=== PATIENT | female | born 1965 | race African-American/Black ===

== ENCOUNTER 2016-08-21 10:56 | Day surgery (SDC) | payer MEDICAID ==
[2016-08-21] MEDS ORDERED: LACTATED RINGERS 1,000 ML IV ONE (11:06)
[2016-08-21] MEDS ORDERED: fentaNYL 250 MCG/5 ML VIAL IVP ONE (12:56)
[2016-08-21] MEDS ORDERED: MIDAZOLAM 2 MG/2 ML VIAL IVP ONE (12:56)
== END 2016-08-21 10:57 | disposition home or self-care (01) ==
PROC: 0DBL8ZX Excision of Transverse Colon, Via Natural or Artificial Opening Endoscopic, Diagnostic (ICD-10-PCS; principal; 2016-08-21 11:45)
DX: Z12.11 Encounter for screening for malignant neoplasm of colon (principal); D12.3 Benign neoplasm of transverse colon; Z79.82 Long term (current) use of aspirin; I42.9 Cardiomyopathy, unspecified; Z88.5 Allergy status to narcotic agent; Z80.9 Family history of malignant neoplasm, unspecified; Z82.0 Family history of epilepsy and other diseases of the nervous system; Z87.891 Personal history of nicotine dependence
CPT/HCPCS: 45380; J3010; J7120

== ENCOUNTER 2016-10-09 09:57 | Outpatient (CLI) | payer MEDICAID | END 2016-10-09 09:58 | disposition home or self-care (01) | DX: G43.719 Chronic migraine without aura, intractable, without status migrainosus (principal); T88.7XXA Unspecified adverse effect of drug or medicament, initial encounter ==

== ENCOUNTER 2017-07-01 10:09 | Outpatient (CLI) | payer MEDICAID ==
[2017-07-01 13:21] LABS: BASOPHILS % (AUTO) 0.3 %; HGB - HEMOGLOBIN 12.8 g/dL (12.0-16.0); LYMPHOCYTES # (AUTO) 1.9 10^3/uL (1.5-3.5); LYMPHOCYTES % (AUTO) 40.1 %; MEAN CORPUSCULAR HEMOGLOBIN 31.4 pg (27.0-31.0); MEAN CORPUSCULAR HGB CONC 34.8 g/dL (32.0-36.0); MEAN CORPUSCULAR VOLUME 90.4 fL (81.0-99.0); MEAN PLATELET VOLUME 10.2 fL (7.9-10.8); MONOCYTES # (AUTO) 0.6 10^3/uL (0.0-1.0); MONOCYTES % (AUTO) 13.2 %; NEUTROPHILS # (AUTO) 2.2 10^3/uL (1.5-6.6); NEUTROPHILS % (AUTO) 45.4 %; PLT - PLATELET COUNT 165 10^3/uL (130-450); RED BLOOD COUNT 4.09 10^6/uL (4.20-5.40); RED CELL DISTRIBUTION WIDTH 12.6 % (12.0-15.0); WHITE BLOOD COUNT 4.8 x10^3/uL (4.8-10.8)
[2017-07-01 14:17] LABS: ALBUMIN 4.3 g/dL (3.2-5.5); ALBUMIN/GLOBULIN RATIO 1.5 (1.0-2.2); ALKALINE PHOSPHATASE 64 IU/L (42-121); ALT ALANINE AMINOTRANSFERASE 10 IU/L (10-60); AST ASPARTATE AMINOTRANSFERASE 16 IU/L (10-42); BILIRUBIN,TOTAL 0.9 mg/dL (0.2-1.0); BUN - BLOOD UREA NITROGEN 12 mg/dL (6-20); CALCIUM 9.1 mg/dL (8.5-10.3); CARBON DIOXIDE - CO2 30 mmol/L (21-32); CHLORIDE 100 mmol/L (101-111); CHOLESTEROL 102 mg/dL; CREATININE 0.6 mg/dL (0.4-1.0); GFR - MDRD 126 (>89); GLUCOSE 82 mg/dL (70-100); HDL CHOLESTEROL 50 mg/dL; LDL CHOLESTEROL,CALCULATED 42 mg/dL; LDL/HDL RATIO 0.8 (<4.4); SODIUM 139 mmol/L (135-145); TOTAL PROTEIN 7.1 g/dL (6.7-8.2); VLDL CHOLESTEROL 10 mg/dL
[2017-07-01 16:37] LABS: HB2 TOTAL 13.2 g/dL; HEMOGLOBIN A1C 0.51 g/dL; HEMOGLOBIN A1C % 5.7 % (4.6-6.2)
== END 2017-07-01 10:10 ==
LOC: LAB.N 10:09
PROVIDERS: ATTEND Psychiatry & Neurology Neurology
DX: Z00.00 Encounter for general adult medical examination without abnormal findings (principal); Z79.899 Other long term (current) drug therapy; E78.5 Hyperlipidemia, unspecified
CPT/HCPCS: 36415; 80053; 80061; 83036; 85025

== ENCOUNTER 2017-07-20 10:08 | Outpatient (CLI) | payer MEDICAID ==
[2017-07-20 12:56] LABS: BASOPHILS % (AUTO) 0.5 %; EOSINOPHILS # (AUTO) 0.1 10^3/uL (0.0-0.7); EOSINOPHILS % (AUTO) 1.1 %; HGB - HEMOGLOBIN 13.3 g/dL (12.0-16.0); LYMPHOCYTES # (AUTO) 2.2 10^3/uL (1.5-3.5); LYMPHOCYTES % (AUTO) 35.3 %; MEAN CORPUSCULAR HEMOGLOBIN 31.3 pg (27.0-31.0); MEAN CORPUSCULAR HGB CONC 34.5 g/dL (32.0-36.0); MEAN CORPUSCULAR VOLUME 90.6 fL (81.0-99.0); MEAN PLATELET VOLUME 10.6 fL (7.9-10.8); MEAN RETIC VALUE 113.2; MONOCYTES # (AUTO) 0.8 10^3/uL (0.0-1.0); MONOCYTES % (AUTO) 12.9 %; NEUTROPHILS # (AUTO) 3.2 10^3/uL (1.5-6.6); NEUTROPHILS % (AUTO) 50.2 %; PLT - PLATELET COUNT 154 10^3/uL (130-450); RED BLOOD COUNT 4.26 10^6/uL (4.20-5.40); RED CELL DISTRIBUTION WIDTH 13.4 % (12.0-15.0); WHITE BLOOD COUNT 6.4 x10^3/uL (4.8-10.8)
[2017-07-20 13:20] LABS: FERRITIN 22.4 ng/mL (11.0-306.8)
[2017-07-20 13:23] LABS: FOLATE 10.44 ng/mL (5.90 - >24.8)
[2017-07-20 14:09] LABS: % IRON SATURATION 16 % (20-50); IRON 59 ug/dL (28-170); TOTAL IRON BINDING CAPACITY 358 ug/dL (250-450); TRANSFERRIN 256 mg/dL (192-382)
== END 2017-07-20 10:09 | disposition home or self-care (01) ==
LOC: LAB.N 10:08
PROVIDERS: ATTEND Family Medicine
DX: E55.9 Vitamin D deficiency, unspecified (principal); D64.9 Anemia, unspecified
CPT/HCPCS: 36415; 82306; 82607; 82728; 82746; 83540; 84466; 85025; 85044

== ENCOUNTER 2017-08-12 08:22 | Outpatient (CLI) | payer MEDICAID ==
--- NOTE | 2017-08-12 12:46 | XRAY Report ---
THREE VIEW BILATERAL KNEES: 08/12/2017 CLINICAL INDICATION: Pain. FINDINGS: AP, lateral, sunrise views of the bilateral knees demonstrate no evidence of fracture or dislocation. The joint spaces are preserved. No effusion is present on either side. IMPRESSION: NORMAL BILATERAL KNEES. TD: 08/12/2017 12:45
== END 2017-08-12 08:23 | disposition home or self-care (01) ==
LOC: DI.N 08:22
PROVIDERS: ATTEND Family Medicine
DX: M25.561 Pain in right knee (principal); M25.562 Pain in left knee

== ENCOUNTER 2017-11-20 09:58 | Outpatient (CLI) | payer MEDICAID ==
[2017-11-20 10:26] LABS: BASOPHILS % (AUTO) 0.6 %; EOSINOPHILS # (AUTO) 0.1 10^3/uL (0.0-0.7); EOSINOPHILS % (AUTO) 1.6 %; HGB - HEMOGLOBIN 13.5 g/dL (12.0-16.0); LYMPHOCYTES % (AUTO) 36.5 %; MEAN CORPUSCULAR HEMOGLOBIN 30.6 pg (27.0-31.0); MEAN CORPUSCULAR HGB CONC 33.6 g/dL (32.0-36.0); MEAN PLATELET VOLUME 9.2 fL (7.9-10.8); MONOCYTES # (AUTO) 0.6 10^3/uL (0.0-1.0); NEUTROPHILS # (AUTO) 2.7 10^3/uL (1.5-6.6); NEUTROPHILS % (AUTO) 50.3 %; PLT - PLATELET COUNT 184 10^3/uL (130-450); RED BLOOD COUNT 4.41 10^6/uL (4.20-5.40); RED CELL DISTRIBUTION WIDTH 12.9 % (12.0-15.0); WHITE BLOOD COUNT 5.4 x10^3/uL (4.8-10.8)
[2017-11-20 10:38] LABS: ALBUMIN 4.1 g/dL (3.2-5.5); ALBUMIN/GLOBULIN RATIO 1.3 (1.0-2.2); ALKALINE PHOSPHATASE 60 IU/L (42-121); ALT ALANINE AMINOTRANSFERASE < 10 IU/L (10-60); AST ASPARTATE AMINOTRANSFERASE 14 IU/L (10-42); BILIRUBIN,TOTAL 0.8 mg/dL (0.2-1.0); BUN - BLOOD UREA NITROGEN 11 mg/dL (6-20); CARBON DIOXIDE - CO2 31 mmol/L (21-32); CHLORIDE 100 mmol/L (101-111); CREATININE 0.5 mg/dL (0.4-1.0); GFR - MDRD 156 (>89); GLUCOSE 97 mg/dL (70-100); SODIUM 138 mmol/L (135-145); TOTAL PROTEIN 7.2 g/dL (6.7-8.2)
[2017-11-20 10:55] LABS: RBC MORPHOLOGY (MULTIPLE) 1+ ANISOCYTOSIS (NORMAL)
== END 2017-11-20 09:59 | disposition home or self-care (01) ==
LOC: LAB 09:58
PROVIDERS: ATTEND Psychiatry & Neurology Neurology
DX: R79.89 Other specified abnormal findings of blood chemistry (principal); T88.7XXA Unspecified adverse effect of drug or medicament, initial encounter
CPT/HCPCS: 36415; 80053; 82140; 85025

== ENCOUNTER 2018-02-22 12:54 | Outpatient (CLI) | payer MEDICAID | END 2018-02-22 12:55 | disposition home or self-care (01) | LOC: DI.N 12:54 | PROVIDERS: ATTEND Family Medicine | DX: Z53.9 Procedure and treatment not carried out, unspecified reason (principal) ==

== ENCOUNTER 2018-03-22 08:10 | Outpatient (CLI) | payer MEDICAID ==
[2018-03-22 14:32] LABS: BASOPHILS % (AUTO) 0.5 %; EOSINOPHILS # (AUTO) 0.1 10^3/uL (0.0-0.7); EOSINOPHILS % (AUTO) 1.6 %; HGB - HEMOGLOBIN 12.4 g/dL (12.0-16.0); LYMPHOCYTES # (AUTO) 1.7 10^3/uL (1.5-3.5); LYMPHOCYTES % (AUTO) 32.6 %; MEAN CORPUSCULAR HEMOGLOBIN 31.3 pg (27.0-31.0); MEAN PLATELET VOLUME 10.7 fL (7.9-10.8); MONOCYTES # (AUTO) 0.6 10^3/uL (0.0-1.0); MONOCYTES % (AUTO) 10.9 %; NEUTROPHILS # (AUTO) 2.8 10^3/uL (1.5-6.6); NEUTROPHILS % (AUTO) 54.4 %; PLT - PLATELET COUNT 178 10^3/uL (130-450); RED BLOOD COUNT 3.97 10^6/uL (4.20-5.40); RED CELL DISTRIBUTION WIDTH 13.4 % (12.0-15.0); WHITE BLOOD COUNT 5.2 x10^3/uL (4.8-10.8)
[2018-03-22 14:54] LABS: ALBUMIN 3.9 g/dL (3.2-5.5); ALBUMIN/GLOBULIN RATIO 1.4 (1.0-2.2); ALKALINE PHOSPHATASE 55 IU/L (42-121); ALT ALANINE AMINOTRANSFERASE 10 IU/L (10-60); AST ASPARTATE AMINOTRANSFERASE 15 IU/L (10-42); BILIRUBIN,TOTAL 0.3 mg/dL (0.2-1.0); BUN - BLOOD UREA NITROGEN 9 mg/dL (6-20); CALCIUM 8.8 mg/dL (8.5-10.3); CARBON DIOXIDE - CO2 31 mmol/L (21-32); CHLORIDE 100 mmol/L (101-111); CHOLESTEROL 178 mg/dL; CREATININE 0.3 mg/dL (0.4-1.0); GFR - MDRD 281 (>89); GLUCOSE 85 mg/dL (70-100); HDL CHOLESTEROL 44 mg/dL; LDL CHOLESTEROL,CALCULATED 117 mg/dL; LDL/HDL RATIO 2.7 (<4.4); SODIUM 140 mmol/L (135-145); TOTAL PROTEIN 6.7 g/dL (6.7-8.2); VLDL CHOLESTEROL 17 mg/dL
[2018-03-22 15:03] LABS: PLATELET MORPHOLOGY RARE GIANT PLATELETS (NORMAL)
== END 2018-03-22 08:11 | disposition home or self-care (01) ==
LOC: LAB.N 08:10
PROVIDERS: ATTEND Family Medicine
DX: Z00.00 Encounter for general adult medical examination without abnormal findings (principal); E55.9 Vitamin D deficiency, unspecified; R63.4 Abnormal weight loss
CPT/HCPCS: 36415; 80050; 80061; 83721

== ENCOUNTER 2018-03-24 13:12 | Outpatient (CLI) | payer MEDICAID ==
[2018-03-24 13:36] LABS: BASOPHILS # (AUTO) 0.1 10^3/uL (0.0-0.1); BASOPHILS % (AUTO) 1.9 %; EOSINOPHILS # (AUTO) 0.1 10^3/uL (0.0-0.7); EOSINOPHILS % (AUTO) 1.3 %; HGB - HEMOGLOBIN 13.1 g/dL (12.0-16.0); LYMPHOCYTES # (AUTO) 2.1 10^3/uL (1.5-3.5); LYMPHOCYTES % (AUTO) 34.5 %; MEAN CORPUSCULAR HEMOGLOBIN 31.1 pg (27.0-31.0); MEAN CORPUSCULAR HGB CONC 34.2 g/dL (32.0-36.0); MEAN CORPUSCULAR VOLUME 91.1 fL (81.0-99.0); MEAN PLATELET VOLUME 9.5 fL (7.9-10.8); MONOCYTES # (AUTO) 0.7 10^3/uL (0.0-1.0); NEUTROPHILS # (AUTO) 3.1 10^3/uL (1.5-6.6); NEUTROPHILS % (AUTO) 50.3 %; PLT - PLATELET COUNT 201 10^3/uL (130-450); RED BLOOD COUNT 4.22 10^6/uL (4.20-5.40); RED CELL DISTRIBUTION WIDTH 13.5 % (12.0-15.0); WHITE BLOOD COUNT 6.1 x10^3/uL (4.8-10.8)
[2018-03-24 13:53] LABS: % IRON SATURATION 12 % (20-50); ALBUMIN 4.2 g/dL (3.2-5.5); ALBUMIN/GLOBULIN RATIO 1.3 (1.0-2.2); ALKALINE PHOSPHATASE 73 IU/L (42-121); ALT ALANINE AMINOTRANSFERASE 10 IU/L (10-60); AST ASPARTATE AMINOTRANSFERASE 18 IU/L (10-42); BILIRUBIN,TOTAL 0.5 mg/dL (0.2-1.0); BUN - BLOOD UREA NITROGEN 7 mg/dL (6-20); CALCIUM 9.1 mg/dL (8.5-10.3); CARBON DIOXIDE - CO2 30 mmol/L (21-32); CHLORIDE 103 mmol/L (101-111); CHOLESTEROL 198 mg/dL; CREATININE 0.5 mg/dL (0.4-1.0); GFR - MDRD 156 (>89); GLUCOSE 89 mg/dL (70-100); HDL CHOLESTEROL 50 mg/dL; IRON 45 ug/dL (28-170); LDL CHOLESTEROL,CALCULATED 116 mg/dL; LDL/HDL RATIO 2.3 (<4.4); SODIUM 141 mmol/L (135-145); TOTAL IRON BINDING CAPACITY 374 ug/dL (250-450); TOTAL PROTEIN 7.5 g/dL (6.7-8.2); TRANSFERRIN 267 mg/dL (192-382); VLDL CHOLESTEROL 32 mg/dL
[2018-03-24 13:54] LABS: PLATELET ESTIMATE, MANUAL NORMAL (130-450,000) (NORMAL); PLATELET MORPHOLOGY RARE GIANT PLATELETS (NORMAL)
[2018-03-24 14:03] LABS: THYROID STIMULATING HORMONE 1.71 uIU/mL (0.34-5.60)
[2018-03-24 14:10] LABS: FERRITIN 15.8 ng/mL (11.0-306.8)
== END 2018-03-24 13:13 | disposition home or self-care (01) ==
LOC: LAB 13:12
PROVIDERS: ATTEND Family Medicine
DX: Z00.00 Encounter for general adult medical examination without abnormal findings (principal); E55.9 Vitamin D deficiency, unspecified; R63.4 Abnormal weight loss; D64.9 Anemia, unspecified
CPT/HCPCS: 36415; 80050; 80061; 82607; 82728; 82747; 83540; 83721; 84466

== ENCOUNTER 2018-04-21 12:07 | Outpatient (CLI) | payer MEDICAID ==
--- NOTE | 2018-04-22 10:34 | Mammography Report ---
Reason: ROUTINE MAMMO Procedure Date: 04/21/2018 Accession Number: [id number] / [id number] Procedure: NICKI - Screening Mammo Dig Bilat CPT Code: FULL RESULT: EXAM: Screening Mammo Dig Bilat DATE: 04/21/2018 1:49 PM CLINICAL HISTORY: Routine screening TECHNIQUE: Bilateral CC and MLO views were obtained. COMPARISON: 02/26/2016 and 07/03/2014 FINDINGS: The breast tissue is heterogeneously dense. No significant interval change. No suspicious masses, clustered microcalcifications, or regions of architectural distortion are identified. IMPRESSION: Negative examination RECOMMENDATION: Routine annual screening unless otherwise clinically indicated. BIRADS CATEGORY 1: Negative STANDARD QUALIFYING STATEMENTS: 1. This examination was reviewed with the aid of Computer-Aided Detection (CAD). 2. A negative or benign imaging report should not delay biopsy if clinically suspicious findings are present. Consider surgical consultation if warrented. More than 5% of cancers are not identified by imaging. 3. Dense breasts may obscure an underlying neoplasm.
== END 2018-04-21 12:08 | disposition home or self-care (01) ==
LOC: DI 12:07
PROVIDERS: ATTEND Family Medicine
DX: Z12.31 Encounter for screening mammogram for malignant neoplasm of breast (principal)
CPT/HCPCS: 77067

== ENCOUNTER 2018-05-25 08:00 | Outpatient (CLI) | payer MEDICAID ==
[2018-05-25 11:22] LABS: BASOPHILS # (AUTO) 0.1 10^3/uL (0.0-0.1); BASOPHILS % (AUTO) 1.2 %; EOSINOPHILS # (AUTO) 0.1 10^3/uL (0.0-0.7); EOSINOPHILS % (AUTO) 1.2 %; HGB - HEMOGLOBIN 13.5 g/dL (12.0-16.0); LYMPHOCYTES # (AUTO) 2.4 10^3/uL (1.5-3.5); LYMPHOCYTES % (AUTO) 37.7 %; MEAN CORPUSCULAR HEMOGLOBIN 30.6 pg (27.0-31.0); MEAN CORPUSCULAR HGB CONC 34.2 g/dL (32.0-36.0); MEAN CORPUSCULAR VOLUME 89.4 fL (81.0-99.0); MEAN PLATELET VOLUME 9.6 fL (7.9-10.8); MONOCYTES # (AUTO) 0.7 10^3/uL (0.0-1.0); MONOCYTES % (AUTO) 11.2 %; NEUTROPHILS # (AUTO) 3.2 10^3/uL (1.5-6.6); NEUTROPHILS % (AUTO) 48.7 %; PLT - PLATELET COUNT 205 10^3/uL (130-450); RED BLOOD COUNT 4.42 10^6/uL (4.20-5.40); RED CELL DISTRIBUTION WIDTH 12.9 % (12.0-15.0); WHITE BLOOD COUNT 6.5 x10^3/uL (4.8-10.8)
[2018-05-25 11:43] LABS: ALBUMIN 4.6 g/dL (3.2-5.5); ALBUMIN/GLOBULIN RATIO 1.5 (1.0-2.2); BILIRUBIN,TOTAL 0.4 mg/dL (0.2-1.0); CALCIUM 9.4 mg/dL (8.5-10.3); CREATININE 0.6 mg/dL (0.4-1.0); TOTAL PROTEIN 7.7 g/dL (6.7-8.2)
== END 2018-05-25 08:01 ==
LOC: LAB 08:00
PROVIDERS: ATTEND Psychiatry & Neurology Neurology
DX: Z51.81 Encounter for therapeutic drug level monitoring (principal)
CPT/HCPCS: 36415; 80053; 82140; 85025

== ENCOUNTER 2018-11-03 08:00 | Outpatient (CLI) | payer MEDICAID ==
[2018-11-03 13:00] LABS: BASOPHILS % (AUTO) 0.5 %; EOSINOPHILS # (AUTO) 0.1 10^3/uL (0.0-0.7); EOSINOPHILS % (AUTO) 1.8 %; HGB - HEMOGLOBIN 13.1 g/dL (12.0-16.0); LYMPHOCYTES # (AUTO) 1.5 10^3/uL (1.5-3.5); LYMPHOCYTES % (AUTO) 30.8 %; MEAN CORPUSCULAR HEMOGLOBIN 30.8 pg (27.0-31.0); MEAN CORPUSCULAR HGB CONC 33.5 g/dL (32.0-36.0); MEAN PLATELET VOLUME 11.2 fL (7.9-10.8); MONOCYTES # (AUTO) 0.6 10^3/uL (0.0-1.0); MONOCYTES % (AUTO) 11.5 %; NEUTROPHILS # (AUTO) 2.7 10^3/uL (1.5-6.6); NEUTROPHILS % (AUTO) 55.4 %; PLT - PLATELET COUNT 164 10^3/uL (130-450); RED BLOOD COUNT 4.24 10^6/uL (4.20-5.40); RED CELL DISTRIBUTION WIDTH 13.1 % (12.0-15.0); WHITE BLOOD COUNT 4.9 x10^3/uL (4.8-10.8)
[2018-11-03 13:20] LABS: ALBUMIN 3.8 g/dL (3.2-5.5); ALBUMIN/GLOBULIN RATIO 1.3 (1.0-2.2); ALKALINE PHOSPHATASE 61 IU/L (42-121); ALT ALANINE AMINOTRANSFERASE < 10 IU/L (10-60); AST ASPARTATE AMINOTRANSFERASE 15 IU/L (10-42); BILIRUBIN,TOTAL 0.7 mg/dL (0.2-1.0); BUN - BLOOD UREA NITROGEN 13 mg/dL (6-20); CALCIUM 8.8 mg/dL (8.5-10.3); CARBON DIOXIDE - CO2 30 mmol/L (21-32); CHLORIDE 98 mmol/L (101-111); CREATININE 0.4 mg/dL (0.4-1.0); GFR - MDRD 201 (>89); GLUCOSE 94 mg/dL (70-100); SODIUM 136 mmol/L (135-145); TOTAL PROTEIN 6.8 g/dL (6.7-8.2)
== END 2018-11-03 23:59 | disposition home or self-care (01) ==
LOC: LAB.N 08:00
PROVIDERS: ATTEND Psychiatry & Neurology Neurology
DX: Z51.81 Encounter for therapeutic drug level monitoring (principal)
CPT/HCPCS: 36415; 80053; 85025

== ENCOUNTER 2019-06-08 08:42 | Outpatient (CLI) | payer MEDICAID ==
--- NOTE | 2019-06-08 11:50 | Mammography Report ---
Reason: ROUTINE MAMMO Procedure Date: 06/08/2019 Accession Number: [id number] / [id number] Procedure: MGN - Screening Mammo Dig Bilat CPT Code: Final Report FULL RESULT: EXAM: Screening Mammo Dig Bilat DATE: 06/08/2019 9:11 AM CLINICAL HISTORY: Screening encounter. TECHNIQUE: (B) - Bilateral CC, laterally exaggerated CC, MLO views were obtained. COMPARISON: 04/21/2018 through 07/03/2014. PARENCHYMAL PATTERN: (A) - The breast(s) demonstrate(s) scattered fibroglandular densities. FINDINGS: CC views need to be repeated for technical reasons. There are no suspicious masses, calcifications, or areas of distortion. IMPRESSION: Incomplete examination. BI-RADS category 0. RECOMMENDATION: (REPEAT) - bilateral CC projections. BI-RADS CATEGORY: (0) - Incomplete Examination - need additional evaluation. STANDARD QUALIFYING STATEMENTS: 1. This examination was not reviewed with the aid of Computer-Aided Detection (CAD). 2. A negative or benign imaging report should not preclude biopsy if clinically suspicious findings are present. 3. Dense breasts may obscure an underlying neoplasm. 4. This examination was reviewed without the aid of 3D breast imaging (tomosynthesis).
== END 2019-06-08 08:43 | disposition home or self-care (01) ==
LOC: DI.N 08:42
PROVIDERS: ATTEND Physician Assistant Medical
DX: Z12.31 Encounter for screening mammogram for malignant neoplasm of breast (principal)
CPT/HCPCS: 77067

== ENCOUNTER 2019-06-28 08:14 | Outpatient (CLI) | payer MEDICAID ==
--- NOTE | 2019-06-28 09:28 | Mammography Report ---
Reason: TECH REPEAT - NO CHARGE - ROUTINE MAMMO Procedure Date: 06/28/2019 Accession Number: [id number] / [id number] Procedure: MGN - Screening Mammo Dig Bilat CPT Code: Final Report FULL RESULT: EXAM: Screening Mammo Dig Bilat DATE: 06/28/2019 8:29 AM CLINICAL HISTORY: EXAM: Screening Mammo Dig Bilat DATE: 06/28/2019 8:29 AM CLINICAL HISTORY: Screening encounter. TECHNIQUE: (B) - Bilateral CC, laterally exaggerated CC, MLO views were obtained. 06/28/2019 images are interpreted in conjunction with 06/08/2019 images. Posterior breast parenchyma visualization is limited despite technical repetition. Best possible images are obtained. COMPARISON: 04/21/2018 through 07/03/2014. PARENCHYMAL PATTERN: (A) - The breast(s) demonstrate(s) scattered fibroglandular densities. FINDINGS: There are no suspicious masses, calcifications, or areas of distortion. IMPRESSION: Negative examination. BI-RADS category 1. RECOMMENDATION: (ANNUAL) - Recommend routine annual screening mammography. BI-RADS CATEGORY: (1) - Negative. STANDARD QUALIFYING STATEMENTS: 1. This examination was not reviewed with the aid of Computer-Aided Detection (CAD). 2. A negative or benign imaging report should not preclude biopsy if clinically suspicious findings are present. 3. Dense breasts may obscure an underlying neoplasm. 4. This examination was reviewed without the aid of 3D breast imaging (tomosynthesis).
== END 2019-06-28 08:15 | disposition home or self-care (01) ==
LOC: DI.N 08:14
PROVIDERS: ATTEND Physician Assistant Medical
DX: Z12.31 Encounter for screening mammogram for malignant neoplasm of breast (principal)
CPT/HCPCS: 77067

== ENCOUNTER 2019-07-27 10:37 | Outpatient (CLI) | payer MEDICAID ==
--- NOTE | 2019-07-27 23:55 | XRAY Report ---
Reason: SHOULDER PAIN Procedure Date: 07/27/2019 Accession Number: [id number] / [id number] Procedure: XRN - Shoulder 2 View LT CPT Code: Final Report FULL RESULT: EXAM: LEFT SHOULDER RADIOGRAPHY EXAM DATE: 07/27/2019 11:17 AM. CLINICAL HISTORY: SHOULDER PAIN. COMPARISON: CHEST 2 VIEW PA/LAT 03/07/2016 8:36 AM. TECHNIQUE: 3 views. FINDINGS: Bones: Normal. No fracture or bone lesion. Joints: The glenohumeral and acromioclavicular joints are normal. Soft tissues: The visualized hemithorax is unremarkable. No soft tissue swelling. IMPRESSION: Normal shoulder radiography. RADIA
== END 2019-07-27 10:38 | disposition home or self-care (01) ==
LOC: DI.N 10:37
PROVIDERS: ATTEND Physician Assistant Medical
DX: M25.512 Pain in left shoulder (principal)

== ENCOUNTER 2019-09-06 13:20 | Outpatient (CLI) | payer MEDICAID | END 2019-09-06 13:21 | disposition critical access hospital (66) | LOC: EMS 13:20 | PROVIDERS: ATTEND Surgery | DX: R06.02 Shortness of breath (principal) | CPT/HCPCS: A0425; A0427; A0999 ==

== ENCOUNTER 2019-09-06 13:34 | Inpatient (IN) | payer MEDICAID ==
--- NOTE | 2019-09-06 13:39 | ED Physician Documentation ---
PD HPI DYSPNEA - Stated complaint Stated Complaint: CHF EXAC - History obtained from History obtained from: Patient - History of Present Illness Timing - onset: Today Timing - onset during: Light activity (The patient states she has enlarged heart and cardiomyopathy. She denies any heart attacks. Her management scientist is in [facility]. She was at cardiac rehab when she developed onset of dyspnea and trouble breathing. She denied any chest pain. She has been having some exertional dyspnea over the last several days as well as some feeling of tightness. She denies any cough or fevers. She has not noticed any pedal edema. She had the onset of significant dyspnea and had low oxygen level. She was brought to the ER by EMS on supplemental oxygen.) Timing - details: Abrupt onset, Still present Inciting event(s): Exercise (She is doing light activity in cardiac rehab.). No: Out of meds, URI Improved by: O2 Worsened by: Laying flat (for couple of days) Associated symptoms: Wheezing. No: Fever, Cough, Chest pain / discomfort, Bilateral edema Similar symptoms before: Has not had sx before (She denies prior similar episodes but states she does have cardiomyopathy and is on diuretic and blood pressure medicines.) Review of Systems Unable to obtain: Other (She has limited review of systems because of difficulty breathing. She is able to speak answers in short bullet points.) Constitutional: denies: Fever Throat: denies: Sore throat Cardiac: denies: Chest pain / pressure, Palpitations, Pedal edema Respiratory: reports: Dyspnea, Wheezing. denies: Cough GI: denies: Abdominal Pain, Nausea, Vomiting Neurologic: reports: Generalized weakness. denies: Near syncope PD PAST MEDICAL HISTORY - Past Medical History Cardiovascular: Other (Cardiomyopathy for which she does not know the etiology. 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 : None HEENT: Chronic vision loss Psych: None Musculoskeletal: None Derm: None - Past Surgical History Past Surgical History: Yes Cardiovascular: Cardiac catheterization HEENT: Tonsil/Adenoidectomy - Present Medications Home Medications: Ambulatory Orders Medication Instructions Recorded Confirmed Aspirin [Aspirin EC] 81 mg PO DAILY 09/06/19 09/06/19 Butalb/Acetaminophen/Caffeine 1 tab PO DAILY PRN MDD 1 tab per 09/06/19 09/06/19 [Szjuaa-Exzgvcxo-Meis 50-325-40] day Divalproex Dr [Depakote Dr] 250 mg PO BID 09/06/19 09/06/19 Montelukast Sodium 10 mg PO DAILY 09/06/19 09/06/19 carvediloL [Carvedilol] 6.25 mg PO BID 09/06/19 09/06/19 lisinopriL [Lisinopril] 10 mg PO DAILY 09/06/19 09/06/19 - Allergies Allergies/Adverse Reactions: Allergies Allergy/AdvReac Type Severity Reaction Status Date / Time oxycodone AdvReac Mild Nausea Verified 08/20/16 14:39 - Living Situation Living Situation: reports: With family Living Arrangement: reports: At home - Social History Does the pt smoke?: No Smoking Status: Never smoker Does the pt drink ETOH?: No Does the pt have substance abuse?: No - Family History Family history: reports: CAD - Immunizations Immunizations are current?: Yes - POLST Patient has POLST: No PD ED PE NORMAL - Vitals Vital signs reviewed: Yes - General General: Alert and oriented X 3, Other (She does appear in discomfort with increased work of breathing and diffuse fine crackles as well as expiratory wheezes. There is some accessory muscle use. She is able to answer questions and just 1 or 2 word answers. She is alert with eyes open.). No: Well developed/nourished (She is frail and thin.) - HEENT HEENT: Pharynx benign - Neck Neck: Supple, no meningeal sign, No adenopathy, Other (JVD noted in semi-recline position at 60 degrees.) - Cardiac Cardiac: No: RRR (Her heart rate seems regular and is tachycardic. I do not hear any murmurs. There are fine crackles noted diffusely through the lung [place] but particularly in the bases. There is a diffuse expiratory wheezing as well. She has some moderate accessory muscle use.) - Respiratory Respiratory: No: Clear bilaterally - Abdomen Abdomen: Soft, Non tender, Non distended - Female Female : Deferred - Rectal Rectal: Deferred - Back Back: No CVA TTP - Derm Derm: Normal color, Warm and dry - Extremities Extremities: No tenderness to palpate, Normal ROM s pain, No edema, No calf tenderness / cord - Neuro Neuro: Alert and oriented X 3, No motor deficit, Normal speech - Psych Psych: No: Normal affect (anxious) Results - Vitals Vitals: Vital Signs - 24 hr 09/06/19 09/06/19 09/06/19 13:41 13:45 13:52 Temperature 98.9 C H Heart Rate 144 H 153 H 147 H Respiratory 12 23 Rate Blood Pressure 155/124 H 155/124 H O2 Saturation 80 L 97 09/06/19 09/06/19 09/06/19 14:00 14:30 15:00 Temperature Heart Rate 139 H 130 H 106 H Respiratory 23 29 H 27 H Rate Blood Pressure 109/90 H 116/81 H 99/79 O2 Saturation 96 96 96 09/06/19 09/06/19 09/06/19 15:14 15:19 15:30 Temperature 36.0 C L Heart Rate 108 H 106 H 111 H Respiratory 27 H 24 27 H Rate Blood Pressure 98/76 107/90 H O2 Saturation 96 92 Oxygen O2 Source BIPAP - EKG (time done) 13:51 Rate: Rate (enter#) (135) Rhythm: Sinus tachycardia [place]: Normal Ischemia: Normal ST segments, Non specific changes. No: ST elevation c/w ischemia, ST depression - Labs Labs: Laboratory Tests 09/06/19 09/06/19 09/06/19 13:51 13:58 13:58 WBC 10.7 RBC 5.13 Hgb 15.7 Hct 50.6 H MCV 98.6 MCH 30.6 MCHC 31.0 L RDW 11.9 L Plt Count 169 MPV 13.5 H Neut # (Auto) Not Reportable Lymph # (Auto) Not Reportable Jones # (Auto) Not Reportable Eos # (Auto) Not Reportable Baso # (Auto) Not Reportable Absolute Nucleated RBC Not Reportable Total Counted 100 Band Neuts % (Manual) 0 Reactive Lymphs % (Man) 14 Abnorm Lymph % (Manual) 0 Nucleated RBC % Not Reportable Neutrophils # (Manual) 4.7 Lymphocytes # (Manual) 5.8 H Monocytes # (Manual) 0.1 Eosinophils # (Manual) 0.1 Basophils # (Manual) 0.0 Differential Comment MANUAL DIFFERENTIAL Manual Slide Review Indicated Platelet Estimate NORMAL (130-450,000) Platelet Morphology 1+ LARGE PLATELETS RBC Morph Micro Appear NORMAL APPEARANCE PT 12.0 INR 1.1 Sodium 138 Potassium 3.0 L Chloride 98 L Carbon Dioxide 20 L Anion Gap 20.0 H BUN 12 Creatinine 1.0 Estimated GFR (MDRD) 70 L Glucose 325 H Calcium 8.9 Magnesium 2.1 Total Bilirubin 0.6 AST 25 ALT 11 Alkaline Phosphatase 76 Troponin I High Sens B-Natriuretic Peptide Total Protein 7.4 Albumin 4.1 Globulin 3.3 Albumin/Globulin Ratio 1.2 Lipase 29 09/06/19 09/06/19 09/06/19 13:58 13:58 15:45 WBC RBC Hgb Hct MCV MCH MCHC RDW Plt Count MPV Neut # (Auto) Lymph # (Auto) Jones # (Auto) Eos # (Auto) Baso # (Auto) Absolute Nucleated RBC Total Counted Band Neuts % (Manual) Reactive Lymphs % (Man) Abnorm Lymph % (Manual) Nucleated RBC % Neutrophils # (Manual) Lymphocytes # (Manual) Monocytes # (Manual) Eosinophils # (Manual) Basophils # (Manual) Differential Comment Manual Slide Review Platelet Estimate Platelet Morphology RBC Morph Micro Appear PT INR Sodium Potassium Chloride Carbon Dioxide Anion Gap BUN Creatinine Estimated GFR (MDRD) Glucose Calcium Magnesium Total Bilirubin AST ALT Alkaline Phosphatase Troponin I High Sens 9.4 70.3 H* B-Natriuretic Peptide 985 H Total Protein Albumin Globulin Albumin/Globulin Ratio Lipase - Rads (name of study) chest xray Radiology: Prelim report reviewed, See rad report (Diffuse bilateral asymmetric infiltrates with areas of consolidation right greater than left. Infectious, inflammatory versus asymmetric edema. ) PD MEDICAL DECISION MAKING - ED course Complexity details: reviewed results, re-evaluated patient (She did improve fairly quickly with BiPAP as well as metoprolol to slow the heart rate and decrease her afterload. Her blood pressure did improve and her oxygenation increased. Chest x-ray showed diffuse edema more on the right. Again no fever and she has not had a cough so does not seem infectious at this time. Her findings are more consistent with flash pulmonary edema. She had been given Lasix by EMS. I worked mostly on decreasing pressure and improving oxygenation. She was awake and alert and conversant so did not seem to be hypoventilating. I did not feel she was necessarily fluid overloaded just mild distributed.), considered differential (The patient with reportedly history of cardiomyopathy and was in cardiac rehab at the time of the onset of difficulty breathing. She does have diffuse wet sounds consistent with pulmonary edema. She does not appear fluid overloaded per se. Considerations for flash pulmonary edema. Her rhythm appears tachycardic but sinus and does fluctuate with improvement in her status. It does not appear to be in fibrillation. She has not had any reported cough fevers or progressive symptoms to suggest bronchitis or pneumonia. She is having considerable work of breathing so we will initiate her quickly on BiPAP and undergo further testing), d/w patient ED course: The patient is improved though is still most comfortable in the sitting position. She was hoping to try having the BiPAP mask off as it was a bit uncomfortable. However she did desaturate down into the upper 80s within 10 or 15 minutes. We replaced her back on the BiPAP and she improved promptly. At this point will continue on the BiPAP. Can give another dose of Lasix with a repeat chest x-ray still showing edema. Talked with the hospitalist who agreed to admit the patient to the ICU for further care. Departure - Departure Disposition: 66 [facility] DC/Xfer Clinical Impression: Dyspnea Qualifiers: Dyspnea type: shortness of breath Qualified Code(s): R06.02 - Shortness of breath; R06.00 - Dyspnea, unspecified; R06.01 - Orthopnea CHF, acute Qualifiers: Heart failure type: unspecified Qualified Code(s): I50.9 - Heart failure, unspecified Pulmonary edema Qualifiers: Chronicity: acute Qualified Code(s): J81.0 - Acute pulmonary edema Condition: Stable Record reviewed to determine appropriate education?: Yes Discharge Date/Time: 09/06/19 16:45
[2019-09-06] MEDS ORDERED: METOPROLOL 5 MG/5 ML VIAL IVP STA (13:50)
[2019-09-06] MEDS ORDERED: ALBUTEROL NEB 2.5 MG/3 ML INH STA (13:50)
[2019-09-06 14:07] LABS: RED CELL DISTRIBUTION WIDTH 11.9 % (12.0-15.0)
[2019-09-06 14:17] LABS: ALBUMIN 4.1 g/dL (3.2-5.5); BILIRUBIN,TOTAL 0.6 mg/dL (0.2-1.0); CALCIUM 8.9 mg/dL (8.5-10.3); MAGNESIUM 2.1 mg/dL (1.7-2.8); TOTAL PROTEIN 7.4 g/dL (6.7-8.2)
[2019-09-06 14:18] LABS: ALBUMIN/GLOBULIN RATIO 1.2 (1.0-2.2)
--- NOTE | 2019-09-06 14:23 | XRAY Report ---
Reason: dyspnea Procedure Date: 09/06/2019 Accession Number: [id number] / [id number] Procedure: XR - Chest 1 View X-Ray CPT Code: 95180 Final Report FULL RESULT: EXAM: CHEST RADIOGRAPHY EXAM DATE: 09/06/2019 02:12 PM. CLINICAL HISTORY: Dyspnea. COMPARISON: SHOULDER 2 VIEW LT 07/27/2019 11:24 AM CHEST W/ 03/18/2016 10:24 AM. TECHNIQUE: view. FINDINGS: Lungs/Pleura: Diffuse bilateral infiltrates. These are asymmetric with more areas of consolidation in the right lung. No effusion. No pneumothorax. Mediastinum: Within exam limitations, the cardiomediastinal contour is normal. Other: None. IMPRESSION: Diffuse bilateral asymmetric infiltrates with areas of consolidation right greater than left. Infectious inflammatory versus asymmetric edema RADIA
[2019-09-06 14:25] LABS: BASOPHILS % (AUTO) 0.5 %; HGB - HEMOGLOBIN 15.7 g/dL (12.0-16.0); LYMPHOCYTES % (AUTO) 52.2 %; MEAN CORPUSCULAR HEMOGLOBIN 30.6 pg (27.0-31.0); MEAN CORPUSCULAR VOLUME 98.6 fL (81.0-99.0); MEAN PLATELET VOLUME 13.5 fL (7.9-10.8); MONOCYTES % (AUTO) 3.2 %; NEUTROPHILS % (AUTO) 42.4 %; PLT - PLATELET COUNT 169 10^3/uL (130-450); RED BLOOD COUNT 5.13 10^6/uL (4.20-5.40); WHITE BLOOD COUNT 10.7 x10^3/uL (4.8-10.8)
[2019-09-06 15:10] LABS: ABNORMAL LYMPHS % (MANUAL) 0 %; BAND NEUTROPHILS % (MANUAL) 0 %
[2019-09-06 15:12] LABS: DIFFERENTIAL COMMENT MANUAL DIFFERENTIAL; EOSINOPHILS # (MANUAL) 0.1 10^3/uL (0-0.7); LYMPHOCYTES # (MANUAL) 5.8 10^3/uL (1.5-3.5); LYMPHOCYTES % (MANUAL) 40 %; MONOCYTES # (MANUAL) 0.1 10^3/uL (0.0-1.0); PLATELET ESTIMATE, MANUAL NORMAL (130-450,000) (NORMAL); PLATELET MORPHOLOGY 1+ LARGE PLATELETS (NORMAL); RBC MORPHOLOGY (MULTIPLE) NORMAL APPEARANCE (NORMAL)
--- NOTE | 2019-09-06 15:43 | XRAY Report ---
Reason: dyspnea Procedure Date: 09/06/2019 Accession Number: [id number] / [id number] Procedure: XR - Chest 1 View X-Ray CPT Code: 69740 Final Report FULL RESULT: EXAM: CHEST RADIOGRAPHY EXAM DATE: 09/06/2019 03:32 PM. CLINICAL HISTORY: Dyspnea. COMPARISON: CHEST 1 VIEW 09/06/2019 1:50 PM. TECHNIQUE: 1 view. FINDINGS: Lungs/Pleura: Moderate diffuse left lung airspace disease, similar to the prior. Severe diffuse right lung airspace disease with consolidations, unchanged. No pleural effusion or pneumothorax. Mediastinum: Within exam limitations, the cardiomediastinal contour is normal. IMPRESSION: Moderate diffuse left lung airspace disease, similar to the prior. Severe diffuse right lung airspace disease with consolidations, unchanged. RADIA
[2019-09-06] MEDS ORDERED: FUROSEMIDE 40 MG/4 ML VIAL IVP STA (15:46)
[2019-09-06] MEDS ORDERED: MORPHINE 2 MG/ML CARPUJECT IVP STA (16:14)
[2019-09-06] MEDS ORDERED: MORPHINE 2 MG/ML CARPUJECT IVP PRN (18:35)
[2019-09-06 18:45] LABS: MUDS CUTOFF CONCENTRATIONS CUTOFF CONC BELOW:
[2019-09-06] MEDS ORDERED: AZITHROMYCIN 250 MG TABLET PO STA (18:59)
[2019-09-06] MEDS: ONDANSETRON 4 MG/2 ML VIAL IVP PRN (19:00)
[2019-09-06] MEDS: SODIUM CHLORIDE FLUSH 0.9% 10 ML SYRINGE IVP PRN (19:01)
[2019-09-06 19:04] LABS: AMPHETAMINE SCREEN,URINE NEGATIVE (NEGATIVE); BENZODIAZEPINES SCREEN, URINE NEGATIVE (NEGATIVE); COCAINE SCREEN URINE NEGATIVE (NEGATIVE); METHADONE SCREEN, URINE NEGATIVE (NEGATIVE); METHAMPHETAMINES SCREEN, URINE NEGATIVE (NEGATIVE); OPIATE SCREEN, URINE POSITIVE (NEGATIVE); OXYCODONE SCREEN, URINE NEGATIVE (NEGATIVE); PROPOXYPHENE SCREEN, URINE NEGATIVE (NEGATIVE); TRICYCLIC ANTIDEPRESSANT,URINE NEGATIVE (NEGATIVE)
--- NOTE | 2019-09-06 19:04 | PHARMACY PROGRESS NOTE ---
- Best Possible Medication History Admit Date and Time: 09/06/19 1548 Processed by: Pharmacy Medication History completed: Yes Patient Interview: Completed Secondary Source(s): Pharmacy records (outpatient pharmacy), Insurance records As the person ultimately responsible for medication therapy, providers are able to order a medication from an existing home medication list in [facility] via the "Reconcile Routine" prior to Confirmation of that medication by call center support consultant. Such practice is discouraged except when the physician, in their clinical judgment, deems that a medical need exists for a medication without regard to previous use.
[2019-09-06 19:06] LABS: INR 1.1 (0.8-1.2)
[2019-09-06] MEDS ORDERED: ASPIRIN 300 MG SUPP PR PRN (19:33)
[2019-09-06] MEDS: SODIUM CHLORIDE FLUSH 0.9% 10 ML SYRINGE IVP SCH ×2 (19:50→23:51)
--- NOTE | 2019-09-06 19:52 | ANESTHESIA PROCEDURE NOTE ---
Anesth Central Line Template - Central Line Central Line Preparation: Consent Obtained, Time out completed, Ultrasound used, Sterile prep and drape Central line location: Right IJ Central line type: Triple lumen Central line catheter tip site resides: Superior vena cava (SVC) Central line aftercare: Chlorhexidine disc placed, Secured (sutured), Placement confirmed, No complications, Bundle checklist complete, Pt tolerated well
[2019-09-06] MEDS: POTASSIUM CHLOR 10 MEQ/100 ML 10 MEQ/100 ML BAG IV SCH ×4 (19:54→23:05)
[2019-09-06] MEDS: cefTRIAXone 2 GM in SODIUM CHLORIDE 0.9% MINIBAG 100 ML IV SCH (19:59)
[2019-09-06] MEDS: METOPROLOL 5 MG/5 ML VIAL IVP SCH (20:00)
[2019-09-06] MEDS: NITROGLYCERIN 2% PASTE TOP SCH (20:04)
[2019-09-06] MEDS: INSULIN REGULAR HUMAN 300 UNIT/3 ML VIAL SUBQ SCH (20:18)
--- NOTE | 2019-09-06 20:58 | HISTORY & PHYSICAL EXAMINATION ---
DATE OF SERVICE: 09/06/2019 Physician: Carri Major MD HISTORY OF PRESENT ILLNESS: This is a 54-year-old black female with a history of (presumed idiopathic) cardiomyopathy diagnosed about 4 years ago and she has been prescribed to take carvedilol and liat inhibitors. She has a history of COPD and continues to smoke, is on Singulair. She takes no inhalers and does not use home oxygen. Patient presents with 1-day of rapidly worsening shortness of breath for which she called an ambulance. She was given a nebulizer treatment en route and had to be put on BiPAP for supplemental oxygen even before arriving to the ER. BiPAP was continued there since she desaturated even on a rebreather oxygen mask to 75%. She was in marked respiratory distress, speaking in 1-word sentences in the ER. She got 1 dose of iv morphine and was able to tolerate the BiPAP and is more comfortable now. The rest of the workup in the ER reveals that she has a very elevated BNP of 985 and the first troponin is not elevated. Her blood pressure was 150/80 in the ER and she also received Lasix IV and Metoprolol IV x1, which helped both her blood pressure and the sinus tachycardia in the 140s, now down to 120s. Patient is now admitted to the ICU for respiratory failure with hypoxia. PAST MEDICAL HISTORY 1. Presumed idiopathic cardiomyopathy. 2. COPD. 3. Tobacco use. 4. She is on Depakote for unknown reason. She could not answer questions because of being on BiPAP. ALLERGIES: OXYCODONE. MEDICATIONS 1. Tylenol with Codeine p.r.n. 2. Carvedilol 6.25 b.i.d. 3. Baby aspirin daily. 4. Singulair 10 mg daily. 5. Depakote 250 mg b.i.d. 6. Lisinopril 10 mg daily. SOCIAL HISTORY: Unknown alcohol history and illicit drug use history, but she did admit to smoking in the emergency room. FAMILY HISTORY: Not obtainable since patient cannot give detailed answers. SOCIAL HISTORY: Not obtainable since patient cannot give detailed answers on BiPAP. REVIEW OF SYSTEMS: Performed by chart review and speaking to the admitting doctor. The pertinent positives are listed, the rest are unknown or negative. PHYSICAL EXAMINATION GENERAL: Thin black female who is currently on BiPAP. She is currently having a CVP line inserted by the Nurse Eyeglass Assembler, and is draped. She is wearing a BIPAP mask. VITAL SIGNS: Blood pressure 120/90, heart rate 100-120 in sinus tachycardia. She was afebrile in the emergency room and now she has just spiked a temperature to 38.4. She is now running saturations of 93-97% on 100% FiO2 via BiPAP. HEENT: Shows her to be on BiPAP. NECK: Positive JVD. CHEST: Had wheezing in the emergency room and now she has bilateral rales and diffuse rhonchi. HEART: Tachycardic. ABDOMEN: Soft, nontender. EXTREMITIES: No clubbing, cyanosis or edema. NEUROLOGIC: Grossly intact. LABORATORY DATA: Sodium 138, potassium 3.0, anion gap elevated at 20, BUN 12, creatinine 1.0. Normal liver tests and bilirubin. The first troponin high sensitivity was 9.4, the next one is 70. BNP 985. Normal lipase. INR normal at 1.1. CBC shows a white count of 10.7, hemoglobin 15.7, RDW 11, platelet count 169. Toxicology was positive for urine opiates, but otherwise a negative screen (done after she got iv morphine in the ER). Her serology showed negative influenza A and B. IMAGING: Chest x-ray showed volume overload as well as right-sided infiltrate versus asymmetric edema greater on the right than the left. EKG: Sinus tachycardia, right atrial enlargement, poor R-wave progression, LVH voltage, occasional PVCs, flat T waves in the lateral leads. IMPRESSION/DIAGNOSES 1. Congestive heart failure exacerbation. 2. Chronic obstructive pulmonary disease exacerbation. 3. Acute respiratory failure with hypoxia. 4. Community-acquired pneumonia. 5. Elevated anion gap. 6. History of cardiomyopathy. 7. Hypokalemia. 8. Tobacco use. 9. Hypertension. 10. Elevated troponin; possible acute NSTEMI vs demand ischemia from tachycardia. 11. Abnormal EKG. PLAN: Admit patient to the ICU on telemetry and continue with BiPAP and supplemental oxygen. Obtain ABG to assess pH, saturation, etc. Continue IV diuretics, and start spironolactone. Instead of Coreg use a beta-1 selective beta [place] in a COPDer, chosing IV Lopressor for both blood pressure control, heart rate control, and treating her cardiomyopathy. Add topical nitro paste for both the elevated troponin and unknown coronary status, and for preload reduction during her heart failure exacerbation. Continue with IV b.i.d. Lasix. Follow her I's and O's, daily weights, and BNP. Order Diop catheter use during this critical status for careful I and O measurements. Follow her electrolytes daily, magnesium daily. Cycle troponins. Obtain an Echo. Obtain blood and sputum cultures. Begin IV antibiotics with ceftriaxone, and p.o. Zithromax (p.o. dosing if possible instead of IV to diminish any additional IV volume infusion during CHF). Correct her hypokalemia with iv riders. Patient will need more iv access than just one peripheral small gauge IV, therefore CVP insertion was requested. Obtain a lactic acid level, obtain an ABG or VBG to assess the pH. Add nebulizers using Xopenex and inhaled steroids, but no IV steroids since there is no audible wheezing and in order to diminish or reduce steroid use if this is an acute [place]. Begin isolation and Goodman-virus evaluation, if she qualifies, as per guidelines. CODE STATUS: FULL CODE. DEEP VENOUS THROMBOSIS PROPHYLAXIS: SCDs, but possibly add therapeutic anticoagulation with heparin versus Lovenox in the face of a possible acute [place]. ATTESTATION: Patient is expected to be discharged or transferred to another facility within 96 hours: Yes. cc: STEVE Durham TD: 09/06/2019 19:46 [email or web address]
[2019-09-06 21:34] LABS: ABG HCO3 24.3 mmol/L (22.0-26.0); ABG PCO2 41 mmHg (34-45); ABG PH 7.39 (7.35-7.45); ABG PO2 87 mmHg (80-100)
[2019-09-06 21:35] LABS: ABG BASE EXCESS -0.6 mmol/L (-2.0-3.0); ABG OXYGEN SATURATION 97 % (94-98); ABG TCO2 25.6 MMOL/L (21.0-29.0); ALLEN TEST POSITIVE
--- NOTE | 2019-09-06 21:46 | XRAY Report ---
Reason: line placement Procedure Date: 09/06/2019 Accession Number: [id number] / [id number] Procedure: XR - Chest for Line Placement CPT Code: Final Report FULL RESULT: EXAM: CHEST RADIOGRAPHY EXAM DATE: 09/06/2019 07:44 PM CLINICAL HISTORY: Line placement. COMPARISON: CHEST 1 VIEW 09/06/2019 3:15 PM. TECHNIQUE: 1 view. FINDINGS: Lungs/Pleura: Multifocal opacities throughout both lungs greatest in the right chest appear similar. No pleural effusion. No pneumothorax. Mediastinum: Within exam limitations, the cardiomediastinal contour is normal. Other: None. IMPRESSION: Right IJ catheter tip located in the region of the inferior SVC. Similar degree and distribution of the multifocal opacities, which may reflect consolidation. RADIA
[2019-09-06] MEDS: FORMOTEROL FUMARATE NEB 20 MCG/2 ML INH SCH (23:24)
[2019-09-06] MEDS: FUROSEMIDE 40 MG/4 ML VIAL IVP SCH (23:46)
[2019-09-06] MEDS: FAMOTIDINE 20 MG TABLET PO SCH (23:46)
[2019-09-06] MEDS: MONTELUKAST 10 MG TABLET PO SCH (23:46)
[2019-09-07] MEDS: METOPROLOL 5 MG/5 ML VIAL IVP SCH (05:41)
[2019-09-07] MEDS: NITROGLYCERIN 2% PASTE TOP SCH (05:43)
[2019-09-07] MEDS: INSULIN REGULAR HUMAN 300 UNIT/3 ML VIAL SUBQ SCH ×4 (05:43→17:21)
[2019-09-07 06:10] LABS: BASOPHILS % (AUTO) 0.2 %; HGB - HEMOGLOBIN 13.2 g/dL (12.0-16.0); LYMPHOCYTES # (AUTO) 2.4 10^3/uL (1.5-3.5); LYMPHOCYTES % (AUTO) 15.2 %; MEAN CORPUSCULAR HEMOGLOBIN 29.5 pg (27.0-31.0); MEAN PLATELET VOLUME 12.8 fL (7.9-10.8); MONOCYTES # (AUTO) 1.1 10^3/uL (0.0-1.0); MONOCYTES % (AUTO) 6.9 %; NEUTROPHILS % (AUTO) 77.1 %; PLT - PLATELET COUNT 144 10^3/uL (130-450); RED BLOOD COUNT 4.48 10^6/uL (4.20-5.40); WHITE BLOOD COUNT 15.6 x10^3/uL (4.8-10.8)
[2019-09-07 06:22] LABS: ALBUMIN 3.5 g/dL (3.2-5.5); ALBUMIN/GLOBULIN RATIO 1.2 (1.0-2.2); BILIRUBIN,TOTAL 0.6 mg/dL (0.2-1.0); CALCIUM 8.4 mg/dL (8.5-10.3); CREATININE 0.9 mg/dL (0.4-1.0); MAGNESIUM 1.6 mg/dL (1.7-2.8); TOTAL PROTEIN 6.5 g/dL (6.7-8.2)
[2019-09-07] MEDS ORDERED: HALOPERIDOL 5 MG/ML VIAL IVP ONE (07:37)
[2019-09-07] MEDS ORDERED: FUROSEMIDE 40 MG/4 ML VIAL IVP SCH (08:00)
[2019-09-07] MEDS: FORMOTEROL FUMARATE NEB 20 MCG/2 ML INH SCH ×2 (08:12→18:14)
[2019-09-07] MEDS: FUROSEMIDE 40 MG/4 ML VIAL IVP SCH (08:33)
[2019-09-07] MEDS: FAMOTIDINE 20 MG TABLET PO SCH (08:45)
[2019-09-07] MEDS: ACETAMINOPHEN 325 MG TABLET PO PRN ×2 (08:46→15:37)
[2019-09-07] MEDS: SODIUM CHLORIDE FLUSH 0.9% 10 ML SYRINGE IVP PRN ×3 (08:47→13:12)
[2019-09-07] MEDS: MAGNESIUM OXIDE 400 MG TABLET PO SCH ×2 (08:47→14:20)
[2019-09-07] MEDS: AZITHROMYCIN 250 MG TABLET PO SCH (08:48)
[2019-09-07] MEDS: NICOTINE 14 MG PATCH TOP SCH (08:49)
[2019-09-07] MEDS: cefTRIAXone 2 GM in SODIUM CHLORIDE 0.9% MINIBAG 100 ML IV SCH (08:58)
[2019-09-07] MEDS ORDERED: METOPROLOL SUCCINATE 25 MG TABLET PO SCH ×2 (09:00→21:00)
[2019-09-07] MEDS ORDERED: SPIRONOLACTONE 25 MG TABLET PO SCH (09:00)
[2019-09-07] MEDS: SODIUM CHLORIDE FLUSH 0.9% 10 ML SYRINGE IVP SCH ×2 (09:42→17:20)
[2019-09-07] MEDS: ASPIRIN EC 81 MG TABLET PO SCH (10:16)
[2019-09-07] MEDS: DIVALPROEX DR 250 MG TABLET PO SCH ×2 (10:17→21:24)
[2019-09-07] MEDS: guaiFENesin 600 MG TABLET PO SCH ×2 (12:44→21:24)
--- NOTE | 2019-09-07 13:47 | PROVIDER PROGRESS NOTE ---
Assessment/Plan - Problem List (1) Acute on chronic systolic heart failure, NYHA class 3 Assessment/Plan: The very elevated BNP and pulmonary edema are both improved clinically. He BIPAP is off and O2 needs are improving hourly, as she is diuresing. The Echo done yesterday afternoon, showed worsening of LVEF to 25% (previously was 35-40% by Echo done here years ago). She requested the Diop be removed, which I will do. She denied any non-compliance with meds or diet, to explain the fluid overload. She denied alcohol binging or iv drug use. She reported that she sees a Temporary Receptionist at [facility], Dr Michel, who she only needs to see yearly or less often now. He had done a catheterization when she first started seeing him, about 6-7 years ago, but does not remember if they found coronary blockages. The very elevated hs-troponins and new changes on EKG may mean she had an NSTEMI as the cause of the rapid respiratory distress yesterday (flash pulmonary edema). I will try to reach Dr Michel's office to discuss with him, as he may recommend a transfer for a coronary angio when the pneumonia is treated. Continue iv diuretic, follow I's and O's, BMP and Mg daily. Her home dose of Coreg was changed to Metoprolol here, in order to use a B-1 selective B-trinidad in this patient with COPD. Start Spironolactone. Resume her Lisinopril. (2) Acute non-ST elevation myocardial infarction (NSTEMI) Assessment/Plan: She reported that she sees a Temporary Receptionist at [facility], Dr Michel, who she only needs to see yearly or less often now. He had done a catheterization when she first started seeing him, about 6-7 years ago, but does not remember if they found coronary blockages. The very elevated hs-troponins and new changes on EKG may mean she had an NSTEMI as the cause of the rapid respiratory distress yesterday (flash pulmonary edema). Continue B-trinidad, NitroPaste, daily aspirin, add a statin. Check lipids and treat per guidelines. I will try to reach her Temporary Receptionist, Dr Michel. (3) CAP (community acquired pneumonia) Assessment/Plan: She had a fever 2 evenings ago at home, she now can report. The cough started yesterday daytime then the severe SOB, after participating in PT. Her WBC has risen since admission, without the use of iv steroids. Here, she had a fever for 8 hours, has a lower resp infection requiring hospitalization and has tested neg for Influenza A&B, therefore she fits criteria to be tested for Goodman virus. The test for Covid was ordered and the sample was sent out today. (Results are expected in 48 hours). Continue reverse isolation and droplet precautions. Continue iv Ceftriaxone and po Zithromax for CAP. Add Mucinex for pulmonary toilet. Continue nebs. (4) COPD exacerbation Assessment/Plan: This has improved with nebs and pulmonary, no iv steroids. Continue O2, tapering down as possible. BIPAP order can be stopped. (5) Hx of cardiomyopathy Assessment/Plan: The patient was able to speak comfortably today and told me her history: she has had heart trouble since childhood, which "no one told her about until she was an adult". When she moved to [facility] 7 years ago from [place], she was referred to a Temporary Receptionist and did have a cardiac catheterization. She does not remember the results. Here, she had an Echo several years ago with LVEF 35%. She states she is compliant with here cardiac meds. She does not have a defibrillator and does not think this was ever offered to her or ever discussed with her. I will reach out to her Temporary Receptionist. I suspect there could be some medication or dietary non-compliance, and she may need CHF teaching and would qualify for CHF education/Cardiac Rehab at the [facility] here after [facility]. (6) Tobacco use Assessment/Plan: She was able to tell me that she is planning on quitting smoking as of this hospitalization and appreciates being on a Nicotine patch here. (7) Headache Assessment/Plan: She is on Depakote for headaches and has a headache today. Will resume the Depakote dose. (8) Acute respiratory failure with hypoxia Assessment/Plan: Resolved. The RN is able to titrate down her supplemental O2; she is on 1L per n.c. currently. - Current Meds Current Meds: Current Medications Generic Name Dose Route Start Last Admin Trade Name Freq PRN Reason Stop Dose Admin Acetaminophen 650 mg 09/06/19 15:48 09/07/19 08:46 Tylenol PO 650 mg Q4HR PRN Administration Pain 1 to 4 Aspirin 81 mg 09/07/19 10:00 09/07/19 10:16 Ecotrin PO 81 mg DAILY SONIDO Administration Azithromycin 250 mg 09/07/19 09:00 09/07/19 08:48 Zithromax PO 09/11/19 00:00 250 mg DAILY SONIDO Administration Divalproex Sodium 250 mg 09/07/19 10:00 09/07/19 10:[address] PO 250 mg BID SONIDO Administration Famotidine 20 mg 09/06/19 21:00 09/07/19 08:45 Pepcid PO 20 mg DAILY SONIDO Administration Formoterol Fumarate 20 mcg 09/06/19 19:00 09/07/19 08:12 Perforomist INH 20 mcg RTBID SONIDO Administration Furosemide 40 mg 09/06/19 21:00 09/07/19 08:33 Lasix Inj 40 Mg Vial IVP 40 mg BID SONIDO Administration Guaifenesin 600 mg 09/07/19 12:00 09/07/19 12:44 Mucinex PO 600 mg BID SONIDO Administration Ceftriaxone Sodium 2 gm/ 100 mls @ 200 mls/hr 09/06/19 19:00 09/07/19 09:30 Sodium Chloride IV Infused DAILY SONIDO Infusion Insulin Human Regular 1 - 9 unit 09/06/19 20:00 09/07/19 12:44 Humulin R SUBQ Not Given Q6HR [facility] Protocol Magnesium Oxide 400 mg 09/07/19 08:00 09/07/19 08:47 Mag Ox PO 09/07/19 14:01 400 mg Q6H SONIDO Administration Protocol Montelukast Sodium 10 mg 09/06/19 21:00 09/06/19 23:46 Singulair PO 10 mg QPM SONIDO Administration Nicotine 1 patch 09/07/19 09:00 09/07/19 08:49 Nicoderm TOP 1 patch DAILY SONIDO Administration Ondansetron HCl 4 mg 09/06/19 18:46 09/06/19 19:00 Zofran Inj IVP 4 mg Q4HR PRN Administration Nausea / Vomiting Sodium Chloride 10 ml 09/06/19 17:00 09/07/19 09:42 Normal Saline Flush 0.9% IVP Not Given 0100,0900,1700 [facility] Sodium Chloride 10 ml 09/06/19 15:48 09/07/19 13:12 Normal Saline Flush 0.9% IVP 10 ml PRN PRN Administration NEEDED PER PROVIDER ORDERS Spironolactone 25 mg 09/07/19 09:00 09/07/19 08:48 Aldactone PO 25 mg DAILY SONIDO Administration - Lab Result Fish Bone Diagrams: 09/07/19 05:30 09/07/19 05:30 - EKG Results EKG Interpreted Independently: Yes EKG Comparison: Changed from prior EKG EKG Findings: Sinus tach at 114, Frequent PVCs, LA and RA enlargement, LVH voltage, prolonged QT (new since yesterday) and infero-lateral T waves are flat (new since yesterday). - Additional Planning My Orders: My Active Orders 09/06/19 15:48 Activity Orders [RC] Q2HR Daily Weight [RC] 0600 IO [RC] Q1HR Initiate Bowel Care Protocol [RC] QSHIFT Initiate Flu Vaccine Screening [RC] ONCE Initiate ICU Electrolyte Prot. [RC] .protocol Initiate Personal Care Protoco [RC] .protocol Initiate Pneumonia Vaccine Scr [RC] ONCE Acetaminophen [Tylenol] 650 mg PO Q4HR PRN Sodium Chloride Flush 0.9% [Normal Saline Flush 0.9%] 10 ml IVP PRN PRN Code Status [OTHERS] Routine Condition of Patient [OTHERS] Routine DVT Prophylaxis [OTHERS] Routine 09/06/19 15:51 Oral Care - Nursing [RC] Routine Oxygen Therapy [RC] Routine Telemetry- [RC] Q4HR 09/06/19 15:52 SCDs [RC] QSHIFT 09/06/19 15:53 Echo Transthoracic Complete [ECHO] Routine 09/06/19 15:54 Initiate Line Care Protocol [RC] QSHIFT 09/06/19 17:00 Sodium Chloride Flush 0.9% [Normal Saline Flush 0.9%] 10 ml IVP 0100,0900,1700 09/06/19 18:35 Morphine Inj (Carpuject) [Morphine (Carpuject)] 2 mg IVP Q2HR PRN 09/06/19 18:46 Ondansetron Inj [Zofran Inj] 4 mg IVP Q4HR PRN 09/06/19 19:00 Formoterol Fumarate [Perforomist] 20 mcg INH RTBID cefTRIAXone [Rocephin] 2 gm Sodium Chloride 0.9% Minibag [Normal Saline 0.9% Minibag] 100 ml IV DAILY 09/06/19 19:01 Nebulizer/MDI Tx. [RC] .qid Resp Teach Nebulizer/MDI [RC] .ONCE 09/06/19 19:51 CULTURE, BLOOD #1 [RM] Stat 09/06/19 21:00 FUROSEMIDE INJ 40mg VIAL [LASIX INJ 40 mg VIAL] 40 mg IVP BID Famotidine [Pepcid] 20 mg PO DAILY Montelukast [Singulair] 10 mg PO QPM 09/06/19 Dinner Low Sodium Diet [DIET] 09/07/19 07:51 Vital Signs [RC] Q3HR 09/07/19 08:00 Magnesium Oxide [Mag Ox] 400 mg PO Q6H 09/07/19 09:00 Azithromycin [Zithromax] 250 mg PO DAILY Nicotine 14 mg Patch [Nicoderm] 1 patch TOP DAILY Spironolactone [Aldactone] 25 mg PO DAILY 09/07/19 10:00 Aspirin EC [Ecotrin] 81 mg PO DAILY Divalproex Dr [Depakote Dr] 250 mg PO BID 09/07/19 12:00 guaiFENesin [Mucinex] 600 mg PO BID 09/07/19 14:00 Nitroglycerin 2% Paste (Pkt) [Nitro-Bid (Pkt)] 0.25 inch TOP Q8H 09/07/19 21:00 Metoprolol Succinate [Toprol Xl] 12.5 mg PO BID Subjective - Subjective Patient Reports: Feeling Better (Much less SOB, has a productive cough), Resting Comfortably, Cough Objective Vital Signs: Vital Signs - 24 hr 09/06/19 09/06/19 09/06/19 13:45 13:52 14:00 Temperature Heart Rate 153 H 147 H 139 H Heart Rate [ Monitoring electrodes] Respiratory 23 23 Rate Blood Pressure 155/124 H 109/90 H Blood Pressure [Right Brachial artery] O2 Saturation 97 96 09/06/19 09/06/19 09/06/19 14:30 15:00 15:14 Temperature Heart Rate 130 H 106 H 108 H Heart Rate [ Monitoring electrodes] Respiratory 29 H 27 H 27 H Rate Blood Pressure 116/81 H 99/79 Blood Pressure [Right Brachial artery] O2 Saturation 96 96 09/06/19 09/06/19 09/06/19 15:19 15:30 16:00 Temperature 36.0 C L Heart Rate 106 H 111 H 117 H Heart Rate [ Monitoring electrodes] Respiratory 24 27 H 27 H Rate Blood Pressure 98/76 107/90 H 116/84 H Blood Pressure [Right Brachial artery] O2 Saturation 96 92 98 09/06/19 09/06/19 09/06/19 16:30 16:57 17:15 Temperature 36 C L Heart Rate 120 H Heart Rate [ 114 H 112 H Monitoring electrodes] Respiratory 23 21 25 H Rate Blood Pressure 85/64 L Blood Pressure 103/79 106/84 H [Right Brachial artery] O2 Saturation 98 98 98 09/06/19 09/06/19 09/06/19 17:30 17:46 18:00 Temperature 38.3 C H Heart Rate 117 H Heart Rate [ 103 H 103 H Monitoring electrodes] Respiratory 21 25 H Rate Blood Pressure Blood Pressure 108/76 108/76 [Right Brachial artery] O2 Saturation 100 93 09/06/19 09/06/19 09/06/19 18:55 19:37 20:00 Temperature 38.4 C H 38.3 C H Heart Rate Heart Rate [ 103 H 124 H Monitoring electrodes] Respiratory 22 22 Rate Blood Pressure 115/70 Blood Pressure 115/97 H 105/80 [Right Brachial artery] O2 Saturation 97 95 09/06/19 09/07/19 09/07/19 23:24 00:00 02:00 Temperature 38.1 C H 38.0 C H Heart Rate 114 H Heart Rate [ 115 H 103 H Monitoring electrodes] Respiratory 26 H 23 18 Rate Blood Pressure Blood Pressure 102/92 H 89/54 L [Right Brachial artery] O2 Saturation 98 98 09/07/19 09/07/19 09/07/19 04:00 05:41 06:00 Temperature 37.9 C H 37.8 C H Heart Rate Heart Rate [ 103 H 92 Monitoring electrodes] Respiratory 18 19 Rate Blood Pressure 91/57 L Blood Pressure 92/56 L 97/64 [Right Brachial artery] O2 Saturation 97 97 09/07/19 09/07/19 09/07/19 08:00 08:15 09:00 Temperature 37.5 C 37.5 C Heart Rate 108 H Heart Rate [ 99 108 H Monitoring electrodes] Respiratory 20 22 13 Rate Blood Pressure Blood Pressure 108/76 109/69 [Right Brachial artery] O2 Saturation 99 100 09/07/19 09/07/19 09/07/19 09:15 09:44 10:00 Temperature 37.6 C H Heart Rate Heart Rate [ 108 H Monitoring electrodes] Respiratory 17 19 25 H Rate Blood Pressure Blood Pressure 98/67 [Right Brachial artery] O2 Saturation 100 100 100 09/07/19 09/07/19 09/07/19 10:32 11:00 12:00 Temperature 37.5 C 37.4 C Heart Rate Heart Rate [ 112 H 106 H Monitoring electrodes] Respiratory 24 18 21 Rate Blood Pressure Blood Pressure 105/74 103/67 [Right Brachial artery] O2 Saturation 100 99 99 09/07/19 09/07/19 12:43 13:00 Temperature 37.5 C Heart Rate Heart Rate [ 120 H Monitoring electrodes] Respiratory 21 15 Rate Blood Pressure Blood Pressure 120/77 [Right Brachial artery] O2 Saturation 100 99 Oxygen O2 Source Nasal cannula I&O (Last 24 Hrs): Intake and Output Totals x24h 09/05/19 09/06/19 09/07/19 23:59 23:59 23:59 Intake Total 550 710 Output Total 755 1550 Balance -205 -840 General: Alert, Oriented x3 HEENT: Mucous membr. moist/pink, Other (Edentulous) Neck: Supple, No JVD Neuro: Alert, Non Focal Cardiovascular: Regular rate, No murmurs Respiratory: No respiratory distress, Breath sounds nml Abdomen: Soft Extremities: No edema - Results Results: Laboratory Results WBC 15.6 x10^3/uL (4.8-10.8) H 09/07/19 05:30 RBC 4.48 10^6/uL (4.20-5.40) 09/07/19 05:30 Hgb 13.2 g/dL (12.0-16.0) 09/07/19 05:30 Hct 41.2 % (37.0-47.0) 09/07/19 05:30 MCV 92.0 fL (81.0-99.0) 09/07/19 05:30 MCH 29.5 pg (27.0-31.0) 09/07/19 05:30 MCHC 32.0 g/dL (32.0-36.0) 09/07/19 05:30 RDW 12.0 % (12.0-15.0) 09/07/19 05:30 Plt Count 144 10^3/uL (130-450) 09/07/19 05:30 MPV 12.8 fL (7.9-10.8) H 09/07/19 05:30 Neut # (Auto) 12.0 10^3/uL (1.5-6.6) H 09/07/19 05:30 Lymph # (Auto) 2.4 10^3/uL (1.5-3.5) 09/07/19 05:30 [place] # (Auto) 1.1 10^3/uL (0.0-1.0) H 09/07/19 05:30 Eos # (Auto) 0.0 10^3/uL (0.0-0.7) 09/07/19 05:30 Baso # (Auto) 0.0 10^3/uL (0.0-0.1) 09/07/19 05:30 Absolute Nucleated RBC 0.00 x10^3/uL 09/07/19 05:30 Total Counted 100 09/06/19 13:58 Band Neuts % (Manual) 0 % (0-10) 09/06/19 13:58 Reactive Lymphs % (Man) 14 % 09/06/19 13:58 Abnorm Lymph % (Manual) 0 % 09/06/19 13:58 Nucleated RBC % 0.0 /100WBC 09/07/19 05:30 Neutrophils # (Manual) 4.7 10^3/uL (1.5-6.6) 09/06/19 13:58 Lymphocytes # (Manual) 5.8 10^3/uL (1.5-3.5) H 09/06/19 13:58 Monocytes # (Manual) 0.1 10^3/uL (0.0-1.0) 09/06/19 13:58 Eosinophils # (Manual) 0.1 10^3/uL (0-0.7) 09/06/19 13:58 Basophils # (Manual) 0.0 10^3/uL (0-0.1) 09/06/19 13:58 Differential Comment MANUAL DIFFERENTIAL 09/06/19 13:58 Manual Slide Review Indicated 09/06/19 13:58 Platelet Estimate NORMAL (130-450,000) (NORMAL) 09/06/19 13:58 Platelet Morphology 1+ LARGE PLATELETS (NORMAL) 09/06/19 13:58 RBC Morph Micro Appear NORMAL APPEARANCE (NORMAL) 09/06/19 13:58 PT 12.0 secs (9.9-12.6) 09/06/19 13:51 INR 1.1 (0.8-1.2) 09/06/19 13:51 Bld Gas Analysis Time 212709/06/19 21:20 Sample Site RIGHT RADIAL 09/06/19 21:20 ABG pH 7.39 (7.35-7.45) 09/06/19 21:20 ABG pCO2 41 mmHg (34-45) 09/06/19 21: ABG pO2 87 mmHg (80-100) 09/06/19 21: ABG HCO3 24.3 mmol/L (22.0-26.0) 09/06/19 21: ABG Total CO2 25.6 MMOL/L (21.0-29.0) 09/06/19 21:20 ABG O2 Saturation 97 % (94-98) 09/06/19 21:20 ABG Base Excess -0.6 mmol/L (-2.0-3.0) 09/06/19 21:20 [place] Test POSITIVE 09/06/19 21:20 O2 Delivery Device OXYMIZER 09/06/19 21:20 O2 Liters/Min 13.00 LPM 09/06/19 21:20 Sodium 139 mmol/L (135-145) 09/07/19 05:30 Potassium 4.0 mmol/L (3.5-5.0) 09/07/19 05:30 Chloride 97 mmol/L (101-111) L 09/07/19 05:30 Carbon Dioxide 31 mmol/L (21-32) 09/07/19 05:30 Anion Gap 11.0 (6-13) 09/07/19 05:30 BUN 21 mg/dL (6-20) H 09/07/19 05:30 Creatinine 0.9 mg/dL (0.4-1.0) 09/07/19 05:30 Estimated GFR (MDRD) 78 (>89) L 09/07/19 05:30 Glucose 109 mg/dL (70-100) H 09/07/19 05:30 Lactic Acid 1.4 mmol/L (0.5-2.2) 09/07/19 08:35 Calcium 8.4 mg/dL (8.5-10.3) L 09/07/19 05:30 Phosphorus 4.6 mg/dL (2.5-4.6) 09/07/19 05:30 Magnesium 1.6 mg/dL (1.7-2.8) L 09/07/19 05:30 Total Bilirubin 0.6 mg/dL (0.2-1.0) 09/07/19 05:30 AST 16 IU/L (10-42) 09/07/19 05:30 ALT 10 IU/L (10-60) 09/07/19 05:30 Alkaline Phosphatase 52 IU/L (42-121) 09/07/19 05:30 Troponin I High Sens 98.3 ng/L (2.3-14.8) H* 09/07/19 05:30 B-Natriuretic Peptide 985 pg/mL (5-100) H 09/06/19 13:58 Total Protein 6.5 g/dL (6.7-8.2) L 09/07/19 05:30 Albumin 3.5 g/dL (3.2-5.5) 09/07/19 05:30 Globulin 3.0 g/dL (2.1-4.2) 09/07/19 05:30 Albumin/Globulin Ratio 1.2 (1.0-2.2) 09/07/19 05:30 Lipase 29 U/L (22-51) 09/06/19 13:58 Nasal Screen MRSA (PCR) NEGATIVE (NEGATIVE) 09/06/19 18:20 Urine Opiates Screen POSITIVE (NEGATIVE) H 09/06/19 18:17 Ur Oxycodone Screen NEGATIVE (NEGATIVE) 09/06/19 18:17 Urine Methadone Screen NEGATIVE (NEGATIVE) 09/06/19 18:17 Ur Propoxyphene Screen NEGATIVE (NEGATIVE) 09/06/19 18:17 Ur Barbiturates Screen NEGATIVE (NEGATIVE) 09/06/19 18:17 Ur Tricyclics Screen NEGATIVE (NEGATIVE) 09/06/19 18:17 Ur Phencyclidine Scrn NEGATIVE (NEGATIVE) 09/06/19 18:17 Ur Amphetamine Screen NEGATIVE (NEGATIVE) 09/06/19 18:17 U Methamphetamines Scrn NEGATIVE (NEGATIVE) 09/06/19 18:17 U Benzodiazepines Scrn NEGATIVE (NEGATIVE) 09/06/19 18:17 Urine Cocaine Screen NEGATIVE (NEGATIVE) 09/06/19 18:17 U Cannabinoids Screen NEGATIVE (NEGATIVE) 09/06/19 18:17 Influenza A (Rapid) Negative (Negative) 09/06/19 15:50 Influenza B (Rapid) Negative (Negative) 09/06/19 15:50 - Procedures Procedures: Procedures EXCISION OF TRANSVERSE COLON, ENDO, DIAGN (08/21/16)
[2019-09-07] MEDS ORDERED: NITROGLYCERIN 2% PASTE TOP SCH (14:00)
[2019-09-07] MEDS ORDERED: BUTALB/ACETAM/CAFF 50/325/40MG TABLET PO PRN (17:46)
[2019-09-07] MEDS: METOPROLOL SUCCINATE 25 MG TABLET PO SCH (21:24)
[2019-09-07] MEDS: MONTELUKAST 10 MG TABLET PO SCH (21:24)
[2019-09-08] MEDS: SODIUM CHLORIDE FLUSH 0.9% 10 ML SYRINGE IVP SCH ×4 (00:53→20:48)
[2019-09-08] MEDS: ONDANSETRON 4 MG/2 ML VIAL IVP PRN (00:53)
[2019-09-08 06:30] LABS: BASOPHILS % (AUTO) 0.3 %; EOSINOPHILS % (AUTO) 0.4 %; HGB - HEMOGLOBIN 12.6 g/dL (12.0-16.0); LYMPHOCYTES # (AUTO) 2.4 10^3/uL (1.5-3.5); LYMPHOCYTES % (AUTO) 25.2 %; MEAN CORPUSCULAR HEMOGLOBIN 30.6 pg (27.0-31.0); MEAN CORPUSCULAR HGB CONC 32.7 g/dL (32.0-36.0); MEAN CORPUSCULAR VOLUME 93.4 fL (81.0-99.0); MEAN PLATELET VOLUME 12.4 fL (7.9-10.8); MONOCYTES # (AUTO) 1.1 10^3/uL (0.0-1.0); MONOCYTES % (AUTO) 11.4 %; NEUTROPHILS % (AUTO) 62.3 %; PLT - PLATELET COUNT 117 10^3/uL (130-450); RED BLOOD COUNT 4.12 10^6/uL (4.20-5.40); RED CELL DISTRIBUTION WIDTH 11.9 % (12.0-15.0); WHITE BLOOD COUNT 9.6 x10^3/uL (4.8-10.8)
[2019-09-08 06:46] LABS: CALCIUM 8.6 mg/dL (8.5-10.3); CREATININE 0.9 mg/dL (0.4-1.0); MAGNESIUM 2.2 mg/dL (1.7-2.8)
[2019-09-08] MEDS: FORMOTEROL FUMARATE NEB 20 MCG/2 ML INH SCH ×2 (07:27→21:06)
[2019-09-08] MEDS ORDERED: SODIUM CHLORIDE 0.9% 500 ML IV ONE (08:21)
--- NOTE | 2019-09-08 08:26 | PROVIDER PROGRESS NOTE ---
Assessment/Plan - Problem List (1) Hypotension Assessment/Plan: BP as low as 79 systolic early this morning. She is warm and dry and mentating well. I suspect low BP is from dehydration from over-diuresis, since she is tachycardic, the BUN/creat ratio is > 20 today, and BNP has dropped to 250 today from at admission. Yesterday evening the iv bid Lasix was stopped (finished), and Hold parameters were put on her Toprol and Lisinopril. Will put Hold parameters on her Spironolactone. Will give a 500 cc saline bolus. Will give iv Dig today for the tachycardia. Remain in ICU today. (2) Acute on chronic systolic heart failure, NYHA class 3 Assessment/Plan: The BNP continues to decline. Will assess sats OOB when BP improved. Cardiac meds have hold parameters today. (3) Acute non-ST elevation myocardial infarction (NSTEMI) Assessment/Plan: I will be reaching out to discuss her further management with her Hardboard Press Operator at [facility], Dr Jiang (I found him on the internet), after the infection is better. She is on daily ASA, B-trinidad and statin. (4) CAP (community acquired pneumonia) Assessment/Plan: Awaiting blood and sputum cultures. She remains on empiric antibiotics of Ceftriaxone and po Zithromax. Also awaiting COVID result. She remains in respiratory isolation. (5) Hx of cardiomyopathy Assessment/Plan: The patient was able to speak comfortably today and told me her history: she has had heart trouble since childhood, which "no one told her about until she was an adult". When she moved to [facility] 7 years ago from [place], she was referred to a Hardboard Press Operator and did have a cardiac catheterization. She does not remember the results. Here, she had an Echo several years ago with LVEF 35%. She states she is compliant with here cardiac meds. She does not have a defibrillator and does not think this was ever offered to her or ever discussed with her. I will reach out to her Hardboard Press Operator. I suspect there could be some medication or dietary non-compliance, and she may need CHF teaching and would qualify for CHF education/Cardiac Rehab at the [facility] here after [facility]. (6) Tobacco use Assessment/Plan: Nicotine patch is helping and she decided yesterday that she will now quit smoking. (7) Headache Assessment/Plan: Her home med of Depakote was resumed for this. (8) COPD exacerbation Assessment/Plan: Ruled out, no steroids were needed. - Current Meds Current Meds: Current Medications Generic Name Dose Route Start Last Admin Trade Name Freq PRN Reason Stop Dose Admin Acetaminophen 650 mg 09/06/19 15:48 09/07/19 15:37 Tylenol PO 650 mg Q4HR PRN Administration Pain 1 to 4 Aspirin 81 mg 09/07/19 10:00 09/07/19 10:16 Ecotrin PO 81 mg DAILY SONIDO Administration Azithromycin 250 mg 09/07/19 09:00 09/07/19 08:48 Zithromax PO 09/11/19 00:00 250 mg DAILY SONIDO Administration Divalproex Sodium 250 mg 09/07/19 10:00 09/07/19 21:[address] PO 250 mg BID SONIDO Administration Famotidine 20 mg 09/06/19 21:00 09/07/19 08:45 Pepcid PO 20 mg DAILY SONIDO Administration Formoterol Fumarate 20 mcg 09/06/19 19:00 09/08/19 07:27 Perforomist INH 20 mcg RTBID SONIDO Administration Guaifenesin 600 mg 09/07/19 12:00 09/07/19 21:24 Mucinex PO 600 mg BID SONIDO Administration Ceftriaxone Sodium 2 gm/ 100 mls @ 200 mls/hr 09/06/19 19:00 09/07/19 09:30 Sodium Chloride IV Infused DAILY SONIDO Infusion Metoprolol Succinate 25 mg 09/07/19 21:00 09/07/19 21:24 Toprol Xl PO 25 mg BID SONIDO Administration Montelukast Sodium 10 mg 09/06/19 21:00 09/07/19 21:24 Singulair PO 10 mg QPM SONIDO Administration Nicotine 1 patch 09/07/19 09:00 09/07/19 08:49 Nicoderm TOP 1 patch DAILY SONIDO Administration Ondansetron HCl 4 mg 09/06/19 18:46 09/08/19 00:53 Zofran Inj IVP 4 mg Q4HR PRN Administration Nausea / Vomiting Sodium Chloride 10 ml 09/06/19 17:00 09/08/19 00:53 Normal Saline Flush 0.9% IVP 10 ml 0100,0900,1700 SONIOD Administration Sodium Chloride 10 ml 09/06/19 15:48 09/07/19 13:12 Normal Saline Flush 0.9% IVP 10 ml PRN PRN Administration NEEDED PER PROVIDER ORDERS - Lab Result Fish Bone Diagrams: 09/08/19 06:15 09/08/19 06:15 - Additional Planning My Orders: My Active Orders 09/07/19 07:51 Vital Signs [RC] Q3HR 09/07/19 09:00 Azithromycin [Zithromax] 250 mg PO DAILY Nicotine 14 mg Patch [Nicoderm] 1 patch TOP DAILY 09/07/19 10:00 Aspirin EC [Ecotrin] 81 mg PO DAILY Divalproex Dr [Depakote Dr] 250 mg PO BID 09/07/19 12:00 guaiFENesin [Mucinex] 600 mg PO BID 09/07/19 17:46 Butalb/Acetam/Caff 50/325/40 [Fioricet] 1 tab PO DAILY PRN 09/07/19 21:00 Metoprolol Succinate [Toprol Xl] 25 mg PO BID 09/08/19 08:20 Spironolactone [Aldactone] 25 mg PO DAILY 09/08/19 08:21 0.9% NS 500ML BOLUS X1 Sodium Chloride 0.9% [Normal Saline 0.9%] 500 ml IV ONCE 09/08/19 09:00 lisinopriL [Zestril] 2.5 mg PO DAILY 09/09/19 05:00 BMP - BASIC METABOLIC PANEL [CHEM] DAILYLAB CBC - COMP BLD CT W/AUTO DIFF [HEME] DAILYLAB Subjective - Subjective Patient Reports: No Complaints (Wants to take a shower) Objective Vital Signs: Vital Signs - 24 hr 09/07/19 09/07/19 09/07/19 09:00 09:15 09:44 Temperature 37.5 C Heart Rate Heart Rate [ 108 H Monitoring electrodes] Respiratory 13 17 19 Rate Blood Pressure 109/69 [Right Brachial artery] O2 Saturation 100 100 100 09/07/19 09/07/19 09/07/19 10:00 10:32 11:00 Temperature 37.6 C H 37.5 C Heart Rate Heart Rate [ 108 H 112 H Monitoring electrodes] Respiratory 25 H 24 18 Rate Blood Pressure 98/67 105/74 [Right Brachial artery] O2 Saturation 100 100 99 09/07/19 09/07/19 09/07/19 12:00 12:43 13:00 Temperature 37.4 C 37.5 C Heart Rate Heart Rate [ 106 H 120 H Monitoring electrodes] Respiratory 21 21 15 Rate Blood Pressure 103/67 120/77 [Right Brachial artery] O2 Saturation 99 100 99 09/07/19 09/07/19 09/07/19 14:42 15:00 16:00 Temperature Heart Rate Heart Rate [ 126 H 115 H Monitoring electrodes] Respiratory 22 20 19 Rate Blood Pressure 109/57 L [Right Brachial artery] O2 Saturation 96 96 96 09/07/19 09/07/19 09/07/19 17:07 18:00 18:16 Temperature 36.7 C Heart Rate 122 H Heart Rate [ 137 H 128 H Monitoring electrodes] Respiratory 16 21 21 Rate Blood Pressure 111/82 H 101/63 [Right Brachial artery] O2 Saturation 98 97 09/07/19 09/07/19 09/07/19 18:33 18:59 21:00 Temperature 36.7 C 36.5 C Heart Rate 122 H Heart Rate [ 126 H 119 H Monitoring electrodes] Respiratory 18 23 24 Rate Blood Pressure 109/70 101/60 [Right Brachial artery] O2 Saturation 97 96 93 09/08/19 09/08/19 09/08/19 00:00 03:00 06:00 Temperature 36.7 C Heart Rate Heart Rate [ 124 H 99 110 H Monitoring electrodes] Respiratory 17 23 25 H Rate Blood Pressure 102/70 88/61 L 77/47 L [Right Brachial artery] O2 Saturation 95 94 97 09/08/19 07:28 Temperature Heart Rate 118 H Heart Rate [ Monitoring electrodes] Respiratory 15 Rate Blood Pressure [Right Brachial artery] O2 Saturation Oxygen O2 Source Room air I&O (Last 24 Hrs): Intake and Output Totals x24h 09/06/19 09/07/19 09/08/19 23:59 23:59 23:59 Intake Total 550 1160 160 Output Total 755 2350 295 Balance -205 -1190 -135 General: Alert, Oriented x3 HEENT: Atraumatic, EOMI Neck: Supple, No JVD Neuro: Alert, Non Focal Cardiovascular: Regular rate Respiratory: No respiratory distress Abdomen: Soft Extremities: No edema - Results Results: Laboratory Results WBC 9.6 x10^3/uL (4.8-10.8) 09/08/19 06:15 RBC 4.12 10^6/uL (4.20-5.40) L 09/08/19 06:15 Hgb 12.6 g/dL (12.0-16.0) 09/08/19 06:15 Hct 38.5 % (37.0-47.0) 09/08/19 06:15 MCV 93.4 fL (81.0-99.0) 09/08/19 06:15 MCH 30.6 pg (27.0-31.0) 09/08/19 06:15 MCHC 32.7 g/dL (32.0-36.0) 09/08/19 06:15 RDW 11.9 % (12.0-15.0) L 09/08/19 06:15 Plt Count 117 10^3/uL (130-450) L 09/08/19 06:15 MPV 12.4 fL (7.9-10.8) H 09/08/19 06:15 Neut # (Auto) 6.0 10^3/uL (1.5-6.6) 09/08/19 06:15 Lymph # (Auto) 2.4 10^3/uL (1.5-3.5) 09/08/19 06:15 [place] # (Auto) 1.1 10^3/uL (0.0-1.0) H 09/08/19 06:15 Eos # (Auto) 0.0 10^3/uL (0.0-0.7) 09/08/19 06:15 Baso # (Auto) 0.0 10^3/uL (0.0-0.1) 09/08/19 06:15 Absolute Nucleated RBC 0.00 x10^3/uL 09/08/19 06:15 Total Counted 100 09/06/19 13:58 Band Neuts % (Manual) 0 % (0-10) 09/06/19 13:58 Reactive Lymphs % (Man) 14 % 09/06/19 13:58 Abnorm Lymph % (Manual) 0 % 09/06/19 13:58 Nucleated RBC % 0.0 /100WBC 09/08/19 06:15 Neutrophils # (Manual) 4.7 10^3/uL (1.5-6.6) 09/06/19 13:58 Lymphocytes # (Manual) 5.8 10^3/uL (1.5-3.5) H 09/06/19 13:58 Monocytes # (Manual) 0.1 10^3/uL (0.0-1.0) 09/06/19 13:58 Eosinophils # (Manual) 0.1 10^3/uL (0-0.7) 09/06/19 13:58 Basophils # (Manual) 0.0 10^3/uL (0-0.1) 09/06/19 13:58 Differential Comment MANUAL DIFFERENTIAL 09/06/19 13:58 Manual Slide Review Indicated 09/06/19 13:58 Platelet Estimate NORMAL (130-450,000) (NORMAL) 09/06/19 13:58 Platelet Morphology 1+ LARGE PLATELETS (NORMAL) 09/06/19 13:58 RBC Morph Micro Appear NORMAL APPEARANCE (NORMAL) 09/06/19 13:58 PT 12.0 secs (9.9-12.6) 09/06/19 13:51 INR 1.1 (0.8-1.2) 09/06/19 13:51 Bld Gas Analysis Time 212709/06/19 21:20 Sample Site RIGHT RADIAL 09/06/19 21:20 ABG pH 7.39 (7.35-7.45) 09/06/19 21:20 ABG pCO2 41 mmHg (34-45) 09/06/19 21:20 ABG pO2 87 mmHg (80-100) 09/06/19 21:20 ABG HCO3 24.3 mmol/L (22.0-26.0) 09/06/19 21:20 ABG Total CO2 25.6 MMOL/L (21.0-29.0) 09/06/19 21:20 ABG O2 Saturation 97 % (94-98) 09/06/19 21:20 ABG Base Excess -0.6 mmol/L (-2.0-3.0) 09/06/19 21:20 [place] Test POSITIVE 09/06/19 21:20 O2 Delivery Device OXYMIZER 09/06/19 21:20 O2 Liters/Min 13.00 LPM 09/06/19 21:20 Sodium 136 mmol/L (135-145) 09/08/19 06:15 Potassium 3.9 mmol/L (3.5-5.0) 09/08/19 06:15 Chloride 96 mmol/L (101-111) L 09/08/19 06:15 Carbon Dioxide 32 mmol/L (21-32) 09/08/19 06:15 Anion Gap 8.0 (6-13) 09/08/19 06:15 BUN 22 mg/dL (6-20) H 09/08/19 06:15 Creatinine 0.9 mg/dL (0.4-1.0) 09/08/19 06:15 Estimated GFR (MDRD) 78 (>89) L 09/08/19 06:15 Glucose 107 mg/dL (70-100) H 09/08/19 06:15 Lactic Acid 1.4 mmol/L (0.5-2.2) 09/07/19 08:35 Calcium 8.6 mg/dL (8.5-10.3) 09/08/19 06:15 Phosphorus 4.6 mg/dL (2.5-4.6) 09/07/19 05:30 Magnesium 2.2 mg/dL (1.7-2.8) 09/08/19 06:15 Total Bilirubin 0.6 mg/dL (0.2-1.0) 09/07/19 05:30 AST 16 IU/L (10-42) 09/07/19 05:30 ALT 10 IU/L (10-60) 09/07/19 05:30 Alkaline Phosphatase 52 IU/L (42-121) 09/07/19 05:30 Troponin I High Sens 98.3 ng/L (2.3-14.8) H* 09/07/19 05:30 B-Natriuretic Peptide 255 pg/mL (5-100) H 09/08/19 06:15 Total Protein 6.5 g/dL (6.7-8.2) L 09/07/19 05:30 Albumin 3.5 g/dL (3.2-5.5) 09/07/19 05:30 Globulin 3.0 g/dL (2.1-4.2) 09/07/19 05:30 Albumin/Globulin Ratio 1.2 (1.0-2.2) 09/07/19 05:30 Lipase 29 U/L (22-51) 09/06/19 13:58 Nasal Screen MRSA (PCR) NEGATIVE (NEGATIVE) 09/06/19 18:20 Urine Opiates Screen POSITIVE (NEGATIVE) H 09/06/19 18:17 Ur Oxycodone Screen NEGATIVE (NEGATIVE) 09/06/19 18:17 Urine Methadone Screen NEGATIVE (NEGATIVE) 09/06/19 18:17 Ur Propoxyphene Screen NEGATIVE (NEGATIVE) 09/06/19 18:17 Ur Barbiturates Screen NEGATIVE (NEGATIVE) 09/06/19 18:17 Ur Tricyclics Screen NEGATIVE (NEGATIVE) 09/06/19 18:17 Ur Phencyclidine Scrn NEGATIVE (NEGATIVE) 09/06/19 18:17 Ur Amphetamine Screen NEGATIVE (NEGATIVE) 09/06/19 18:17 U Methamphetamines Scrn NEGATIVE (NEGATIVE) 09/06/19 18:17 U Benzodiazepines Scrn NEGATIVE (NEGATIVE) 09/06/19 18:17 Urine Cocaine Screen NEGATIVE (NEGATIVE) 09/06/19 18:17 U Cannabinoids Screen NEGATIVE (NEGATIVE) 09/06/19 18:17 Influenza A (Rapid) Negative (Negative) 09/06/19 15:50 Influenza B (Rapid) Negative (Negative) 09/06/19 15:50 - Procedures Procedures: Procedures EXCISION OF TRANSVERSE COLON, ENDO, DIAGN (08/21/16)
[2019-09-08] MEDS: FAMOTIDINE 20 MG TABLET PO SCH (08:40)
[2019-09-08] MEDS: lisinopriL 5 MG TABLET PO SCH (08:40)
[2019-09-08] MEDS: guaiFENesin 600 MG TABLET PO SCH ×2 (08:41→20:47)
[2019-09-08] MEDS: ASPIRIN EC 81 MG TABLET PO SCH (08:42)
[2019-09-08] MEDS: SPIRONOLACTONE 25 MG TABLET PO SCH (08:43)
[2019-09-08] MEDS: AZITHROMYCIN 250 MG TABLET PO SCH (08:43)
[2019-09-08] MEDS: METOPROLOL SUCCINATE 25 MG TABLET PO SCH ×2 (08:44→20:48)
[2019-09-08] MEDS: DIVALPROEX DR 250 MG TABLET PO SCH ×2 (08:44→20:48)
[2019-09-08] MEDS: NICOTINE 14 MG PATCH TOP SCH (08:45)
[2019-09-08] MEDS: cefTRIAXone 2 GM in SODIUM CHLORIDE 0.9% MINIBAG 100 ML IV SCH (09:01)
[2019-09-08] MEDS ORDERED: DIGOXIN 500 MCG/2 ML AMP IVP ONE (10:00)
[2019-09-08] MEDS ORDERED: METOPROLOL SUCCINATE 25 MG TABLET PO ONE (14:30)
[2019-09-08] MEDS: MONTELUKAST 10 MG TABLET PO SCH (20:47)
[2019-09-08] MEDS: ACETAMINOPHEN 325 MG TABLET PO PRN (20:52)
[2019-09-09] MEDS: SODIUM CHLORIDE FLUSH 0.9% 10 ML SYRINGE IVP PRN (05:14)
[2019-09-09 06:01] LABS: BASOPHILS % (AUTO) 0.5 %; EOSINOPHILS # (AUTO) 0.1 10^3/uL (0.0-0.7); HGB - HEMOGLOBIN 11.9 g/dL (12.0-16.0); LYMPHOCYTES # (AUTO) 2.3 10^3/uL (1.5-3.5); LYMPHOCYTES % (AUTO) 38.3 %; MEAN CORPUSCULAR HEMOGLOBIN 29.2 pg (27.0-31.0); MEAN CORPUSCULAR VOLUME 91.4 fL (81.0-99.0); MEAN PLATELET VOLUME 12.5 fL (7.9-10.8); MONOCYTES # (AUTO) 0.6 10^3/uL (0.0-1.0); MONOCYTES % (AUTO) 10.4 %; NEUTROPHILS # (AUTO) 2.9 10^3/uL (1.5-6.6); NEUTROPHILS % (AUTO) 48.5 %; PLT - PLATELET COUNT 118 10^3/uL (130-450); RED BLOOD COUNT 4.07 10^6/uL (4.20-5.40); RED CELL DISTRIBUTION WIDTH 11.9 % (12.0-15.0)
[2019-09-09 06:10] LABS: CALCIUM 8.7 mg/dL (8.5-10.3); CREATININE 0.6 mg/dL (0.4-1.0)
[2019-09-09] MEDS: FORMOTEROL FUMARATE NEB 20 MCG/2 ML INH SCH (07:16)
[2019-09-09] MEDS ORDERED: MULTIVITAMIN W/MINERALS TABLET PO SCH (08:00)
[2019-09-09] MEDS: ASPIRIN EC 81 MG TABLET PO SCH (08:16)
[2019-09-09] MEDS: AZITHROMYCIN 250 MG TABLET PO SCH (08:16)
[2019-09-09] MEDS: SPIRONOLACTONE 25 MG TABLET PO SCH (08:17)
[2019-09-09] MEDS: METOPROLOL SUCCINATE 25 MG TABLET PO SCH (08:18)
[2019-09-09] MEDS: guaiFENesin 600 MG TABLET PO SCH (08:18)
[2019-09-09] MEDS: DIVALPROEX DR 250 MG TABLET PO SCH (08:19)
[2019-09-09] MEDS: NICOTINE 14 MG PATCH TOP SCH (08:20)
[2019-09-09] MEDS: FAMOTIDINE 20 MG TABLET PO SCH (08:20)
[2019-09-09] MEDS: lisinopriL 5 MG TABLET PO SCH (08:39)
[2019-09-09] MEDS: cefTRIAXone 2 GM in SODIUM CHLORIDE 0.9% MINIBAG 100 ML IV SCH (08:41)
[2019-09-09] MEDS: SODIUM CHLORIDE FLUSH 0.9% 10 ML SYRINGE IVP SCH ×3 (08:46→17:30)
[2019-09-09] MEDS ORDERED: LACTOBACILLUS RHAMNOSUS GG CAPSULE PO SCH (09:00)
[2019-09-09] MEDS: ACETAMINOPHEN 325 MG TABLET PO PRN (11:54)
--- NOTE | 2019-09-09 13:17 | XRAY Report ---
Reason: F/U CHF and pneumonia Procedure Date: 09/09/2019 Accession Number: [id number] / [id number] Procedure: XR - Chest 1 View X-Ray CPT Code: 70137 Final Report FULL RESULT: EXAM: CHEST RADIOGRAPHY EXAM DATE: 09/09/2019 12:55 PM. CLINICAL HISTORY: F/U CHF and pneumonia. COMPARISON: CHEST FOR LINE PLACEMENT 09/06/2019 7:22 PM. TECHNIQUE: 1 view. FINDINGS: Lungs/Pleura: Marked improvement in bilateral infiltrates. Increased markings right upper lung. Atelectasis left base. No pleural effusion. No pneumothorax. Mediastinum: Within exam limitations, the cardiomediastinal contour is normal. Other: Right jugular line lower SVC. IMPRESSION: Marked improvement in bilateral infiltrates. Increased markings right upper lung. Atelectasis left base. RADIA
[2019-09-09 16:06] VITALS: BP 123/75
--- NOTE | 2019-09-09 16:19 | Discharge Plan ---
Discharge Plan Problem Reviewed?: Yes Disposition: 02 Transfer Acute Care Hosp Condition: Stable Instruction Topics: Ceftriaxone injection, Azithromycin tablets, Metoprolol tablets, Nitroglycerin skin ointment, Spironolactone tablets, Cardiomyopathy Living, Heart Failure Diet Changes No Smoking: If you smoke, Please STOP! Call for help.
--- NOTE | 2019-09-09 16:20 | DISCHARGE SUMMARY ---
Discharge Summary Admit Date: 09/06/19 Discharge Date: 09/09/19 Discharging Provider: Dr Carri Major Primary Care Provider: STEVE Durham Code Status: Attempt Resuscitation Condition at Discharge: Fair Discharge Disposition: 02 Transfer Acute Care Hosp Discharge Facility Name: [facility] - DIAGNOSES Admission Diagnoses: 1) CHF exacerbation 2) COPD exacerbation 3) Acute resp failure with hypoxia 4) Community acquired pneumonia 5) Elevated anion gap 6) History of cardiomyopathy 7) Hypokalemia 8) Tobacco use 9) HTN 10) Elevated troponin 11) Abnormal EKG Discharge Diagnoses with Status of Each Condition: See below - HPI History of Present Illness: This is a 54-year-old black female with history of cardiomyopathy, she reports, since childhood. She has been followed by a Director Of Materials since she moved here 6 years ago, when she underwent cardiac catheterization that showed normalized LVEF and one-vessel CAD with 50% ostial right coronary disease. She has been on Coreg and Lisinopril and has not needed diuretics. Four years ago an Echo done at this hospital showed repeat worsening of her cardiomyopathy to an EF of 35%. Patient also has a history of smoking, COPD not on inhalers or oxygen, and history of headaches for which she requires Depakote. Patient presented with rapid onset of shortness of breath while she was undergoi outpatient physical therapy for her shoulders. She also had a cough and felt feverish starting the previous night. At the PT appointment, she got SOB so quickly that they called an ambulance. She received a nebulizer and required starting BIPAP en route. She was found to be febrile at 38.4C, HR 120 in sinus tachycardia, BP 120/90, she could only speak in 1 word sentences. Labs showed BNP of 985, troponin-hs 9.4 then 70, drug screen neg, WBC 10.7, CXR with CHF and right-sided infiltrate, Influenza A & B were neg. She received iv Morphine, Lasix iv and Metoprolol iv and BIPAP was continued. Blood cultures were drawn and she was started on iv Ceftriaxone and Zithromax for a community acquired pneumonia. A COVID swab was taken since she had a fever, lower respiratory illness and elevated WBC. She was admitted to the ICU in serious condition. - HOSPITAL COURSE Hospital Course: (1) Flash pulmonary edema This presentation was felt to be flash pulmonary edema from an acute NSTEMI (see below). She received iv bid Lasix for 2 days and BIPAP support, had 1.5L negative fluid balance in the first 24 hours and the BIPAP was able to be weaned to off over 24 hours, then supplemental oxygen via nasal cannula was weaned to off over the next 3 days. (2) Acute on chronic systolic heart failure, NYHA class 3 The BNP improved daily. An Echo was done that showed worsening of her LVEF to 20-25%. Her Coreg was changed to Metoprolol for B1 selective B-trinidad use in a COPDer, and for a med with stronger heart rate control. IV Lasix was stopped and she was started on Spironolactone and kept on Lisinopril. (3) Acute non-ST elevation myocardial infarction (NSTEMI) Her hs-troponins peaked at 192 and her EKG showed new deep T wave inversions in the lateral leads. She was on daily ASA, B-trinidad, Lovenox and statin. She had no NTP due to low BPs in the 80-90's after diuresing. I reached her division plant engineer, Dr Jiang, who agreed that she had an OK and needed transfer to the Hospitalist service for a coronary angio by the Cardiology Team. She was kindly accepted in transfer on 09/09/19. (4) CAP (community acquired pneumonia) Blood and sputum cultures were neg to date. On the day of transfer, a CXR showed improvement of her infiltrates, and her COVID result returned negative, isolation orders were stopped. She remained on empiric antibiotics of iv Ceftriaxone and po Zithromax and was Lactobacillus, nebs and Mucinex. (5) Hx of cardiomyopathy The patient was able to speak comfortably after BIPAP was removed and told me her history: she has had heart trouble since childhood, which "no one told her about until she was an adult". When she moved to [facility] 7 years ago from [place], she was referred to a Director Of Materials and did have a cardiac catheterization. She did not remember the results, but we got that from Dr Jiang's office on the day of transfer. The patient sees him yearly. She stated she is compliant with here cardiac meds. She does not have a defibrillator and does not think this was ever offered to her or ever discussed with her. She would qualify for Cardiac Rehab and CHF education at the [facility] here after [facility]. (6) Hypotension due to meds BP did drop as low as 79 systolic after 2 days of diuresis, but she was warm and dry and mentating well. The low BP was from dehydration from over-diuresis, since she was tachycardic, the BUN/creat ratio > 20 today, and BNP has dropped to 250 from 985 at admission. She got a 500 cc saline bolus, her meds had hold parameters and she got Dig one ay for rate control. (7) Tobacco use Nicotine patch was helping and she decided that she will now quit smoking. (8) Headache Her home med of Depakote was resumed for this. (9) COPD Hx Exacerbation was ruled out, no steroids were needed. - ALLERGIES Allergies/Adverse Reactions: Allergies Allergy/AdvReac Type Severity Reaction Status Date / Time oxycodone AdvReac Mild Nausea Verified 08/20/16 14:39 - MEDICATIONS Home Medications: Ambulatory Orders Medication Instructions Recorded Confirmed Aspirin [Aspirin EC] 81 mg PO DAILY 09/06/19 09/06/19 Butalb/Acetaminophen/Caffeine 1 tab PO DAILY PRN MDD 1 tab per 09/06/19 09/06/19 [Qmgmpa-Kjunkgsq-Aful 50-325-40] day Divalproex Dr [Depakote Dr] 250 mg PO BID 09/06/19 09/06/19 Montelukast Sodium 10 mg PO DAILY 09/06/19 09/06/19 carvediloL [Carvedilol] 6.25 mg PO BID 09/06/19 09/06/19 lisinopriL [Lisinopril] 10 mg PO DAILY 09/06/19 09/06/19 - PHYSICAL EXAM AT DISCHARGE General Appearance: positive: No acute distress, Alert Eyes Bilateral: positive: Normal inspection, EOMI ENT: positive: Other (Edentulous, moist mucosa.) Respiratory: positive: No respiratory distress, Breath sounds nml Cardiovascular: positive: Regular rate & rhythm, No murmur Abdomen: positive: Non-tender, Nml bowel sounds, No distention Skin: positive: Color nml Extremities: positive: No pedal edema Neurologic/Psychiatric: positive: Oriented x3, Other (Non-focal) - LABS Result Diagrams: 09/09/19 05:10 09/09/19 05:10 - DIAGNOSTIC IMAGING Diagnostic Imaging Results: Final report reviewed - FOLLOW UP Follow Up: This will be determined after her hospitalization at [facility]. - TIME SPENT Time Spent in Discharge (Minutes): 65
[2019-09-09] MEDS ORDERED: ENOXAPARIN 30 MG/0.3 ML SYRINGE SUBQ SCH (17:25)
[2019-09-09] MEDS ORDERED: ATORVASTATIN 40 MG TABLET PO SCH (21:00)
[2019-09-10] MEDS ORDERED: ENOXAPARIN 30 MG/0.3 ML SYRINGE SUBQ SCH (16:52)
== END 2019-09-09 17:35 | disposition short-term general hospital (02) | DRG 280 ==
LOC: ED 13:34 → ICU 15:48
PROVIDERS: ADMIT Internal Medicine; ATTEND Internal Medicine
PROC: 02HV33Z Insertion of Infusion Device into Superior Vena Cava, Percutaneous Approach (ICD-10-PCS; principal; 2019-09-06)
PROC: B548ZZA Ultrasonography of Superior Vena Cava, Guidance (ICD-10-PCS; 2019-09-06)
DX: I21.4 Non-ST elevation (NSTEMI) myocardial infarction (principal); I50.23 Acute on chronic systolic (congestive) heart failure; J18.9 Pneumonia, unspecified organism; J96.01 Acute respiratory failure with hypoxia; I42.8 Other cardiomyopathies; I25.10 Atherosclerotic heart disease of native coronary artery without angina pectoris; I11.0 Hypertensive heart disease with heart failure; J44.9 Chronic obstructive pulmonary disease, unspecified; E87.6 Hypokalemia; I95.2 Hypotension due to drugs; T50.1X5A Adverse effect of loop [high-ceiling] diuretics, initial encounter; Y92.230 Patient room in hospital as the place of occurrence of the external cause; E86.0 Dehydration; F17.200 Nicotine dependence, unspecified, uncomplicated; R51 Headache; H54.7 Unspecified visual loss; Z79.82 Long term (current) use of aspirin
CPT/HCPCS: 36415; 36600; 71045; 80048; 80053; 80306; 81599; 82803; 83605; 83690; 83735; 83880; 84100; 84484; 85025; 85610; 87040; 87150; 87275; 87276; 93005; 93306; 94640; 94660; 96374; 99285; 99291; A9270

== ENCOUNTER 2019-09-09 17:39 | Outpatient (CLI) | payer MEDICAID | END 2019-09-09 23:59 | disposition short-term general hospital (02) | LOC: EMS 17:39 | PROVIDERS: ATTEND Surgery | DX: I21.9 Acute myocardial infarction, unspecified (principal); J18.9 Pneumonia, unspecified organism | CPT/HCPCS: A0425; A0428 ==

== ENCOUNTER 2019-10-11 12:15 | Outpatient (CLI) | payer MEDICAID ==
--- NOTE | 2019-10-11 19:13 | CT Report ---
Reason: SMOKES CIGARETTES Procedure Date: 10/11/2019 Accession Number: [id number] / [id number] Procedure: CT - Low Dose Lung Cancer Screen CPT Code: Final Report FULL RESULT: EXAM CT LUNG SCREEN EXAM DATE: 10/11/2019 12:38 PM. HISTORY: 54-year-old patient with [id number] smoking history. Currently smoking: No. Years since quittin years. COMPARISON: CHEST W/ 03/18/2016 10:24 AM. TECHNIQUE: CT examination of the entire thorax without contrast was performed using low-dose technique. Thin section coronal, axial, sagittal and MIP axial images were obtained. In accordance with CT protocol optimization, one or more of the following dose reduction techniques were utilized for this exam: automated exposure control, adjustment of mA and/or KV based on patient size, or use of iterative reconstructive technique. FINDINGS: Nodules: Right upper lobe: 2 mm medial right upper lobe, image 41, series 4, stable. Medial right upper lobe, 2 mm, image 30, series 4, stable. 2.5 mm oval nodular opacity, image 38, series 4, stable. Right middle lobe: None. Right lower lobe: 3 mm medial inferior nodular opacity, image 113, series 4, stable. Left upper lobe: None. Left lower lobe: Superior segment 2 mm, image 36, series 4. Emphysema: None. Pleura: Biapical pleural thickening. Aorta: Mild focal thoracic aortic atherosclerosis in the distal aortic arch and proximal descending thoracic aorta. Mediastinum: Heart size normal. Trace pericardial effusion. No enlarged mediastinal or hilar lymph nodes. Visualized thyroid gland is unremarkable. Coronary calcifications: None. Other pulmonary findings: Bilateral bronchial dilatation with progression. Right middle lobe, lingular and basilar scar/atelectasis. No pleural effusions. No pneumothorax. No endobronchial obstruction. Other extrapulmonary findings: Unremarkable upper abdomen. Mild degenerative changes of the thoracic spine. IMPRESSION: Lung-RADS ASSESSMENT CATEGORY: 2. - Benign appearance or behavior. Probability of malignancy: Less than 1%. RECOMMENDATION: Recommended follow up based on ACR Lung-RADS Version 1.1 Guidelines which recommends follow-up low-dose chest CT in 12 months. RADIA
== END 2019-10-11 12:16 | disposition home or self-care (01) ==
LOC: DI 12:15
PROVIDERS: ATTEND Physician Assistant Medical
DX: Z12.2 Encounter for screening for malignant neoplasm of respiratory organs (principal); Z87.891 Personal history of nicotine dependence

== ENCOUNTER 2020-06-11 12:10 | Outpatient (CLI) | payer MEDICAID | END 2020-06-11 12:11 | disposition home or self-care (01) | LOC: COV 12:10 | PROVIDERS: ATTEND Family Medicine | DX: R05 Cough (principal); R19.7 Diarrhea, unspecified; R09.81 Nasal congestion; J34.89 Other specified disorders of nose and nasal sinuses; Z20.828 Contact with and (suspected) exposure to other viral communicable diseases ==

== ENCOUNTER 2020-07-10 08:00 | Outpatient (CLI) | payer MEDICAID | END 2020-07-10 23:59 | LOC: LAB.R 08:00 | PROVIDERS: ATTEND Family Medicine | DX: R50.9 Fever, unspecified (principal); R11.0 Nausea; Z20.822 Contact with and (suspected) exposure to COVID-19 | CPT/HCPCS: 87275; 87276 ==

== ENCOUNTER 2020-07-18 08:00 | Outpatient (CLI) | payer MEDICAID ==
[2020-07-18 12:34] LABS: ALBUMIN 4.5 g/dL (3.2-5.5); ALBUMIN/GLOBULIN RATIO 1.6 (1.0-2.2); ALKALINE PHOSPHATASE 80 IU/L (42-121); ALT ALANINE AMINOTRANSFERASE 13 IU/L (10-60); AST ASPARTATE AMINOTRANSFERASE 16 IU/L (10-42); BILIRUBIN,TOTAL 0.6 mg/dL (0.2-1.0); BUN - BLOOD UREA NITROGEN 12 mg/dL (6-20); CALCIUM 9.4 mg/dL (8.5-10.3); CARBON DIOXIDE - CO2 30 mmol/L (21-32); CHLORIDE 99 mmol/L (101-111); CHOL/HDL RATIO 2.5 (<4.4); CHOLESTEROL 122 mg/dL; CREATININE 0.7 mg/dL (0.4-1.0); GLUCOSE 99 mg/dL (70-100); HDL CHOLESTEROL 48 mg/dL; LDL CHOLESTEROL,CALCULATED 63 mg/dL; LDL/HDL RATIO 1.3 (<4.4); TOTAL PROTEIN 7.3 g/dL (6.7-8.2); VALPROIC ACID (DEPAKOTE) 77.7 ug/mL; VLDL CHOLESTEROL 11 mg/dL
[2020-07-18 12:50] LABS: BASOPHILS % (AUTO) 0.4 %; EOSINOPHILS # (AUTO) 0.1 10^3/uL (0.0-0.7); EOSINOPHILS % (AUTO) 1.2 %; HGB - HEMOGLOBIN 13.1 g/dL (12.0-16.0); LYMPHOCYTES # (AUTO) 2.6 10^3/uL (1.5-3.5); LYMPHOCYTES % (AUTO) 33.8 %; MEAN CORPUSCULAR HEMOGLOBIN 29.3 pg (27.0-31.0); MEAN CORPUSCULAR HGB CONC 31.7 g/dL (32.0-36.0); MEAN CORPUSCULAR VOLUME 92.4 fL (81.0-99.0); MEAN PLATELET VOLUME 12.8 fL (7.9-10.8); MONOCYTES # (AUTO) 0.7 10^3/uL (0.0-1.0); MONOCYTES % (AUTO) 9.4 %; NEUTROPHILS # (AUTO) 4.3 10^3/uL (1.5-6.6); NEUTROPHILS % (AUTO) 54.8 %; PLT - PLATELET COUNT 265 10^3/uL (130-450); RED BLOOD COUNT 4.47 10^6/uL (4.20-5.40); WHITE BLOOD COUNT 7.8 x10^3/uL (4.8-10.8)
== END 2020-07-18 23:59 | disposition home or self-care (01) ==
LOC: LAB.WCP 08:00
PROVIDERS: ATTEND Internal Medicine
DX: I25.5 Ischemic cardiomyopathy (principal); G43.909 Migraine, unspecified, not intractable, without status migrainosus
CPT/HCPCS: 36415; 80050; 80061; 80164; 83721

== ENCOUNTER 2020-08-08 08:46 | Outpatient (CLI) | payer MEDICAID ==
--- NOTE | 2020-08-09 09:33 | Mammography Report ---
BILATERAL DIGITAL SCREENING MAMMOGRAM 3D/2D: 08/08/2020 CLINICAL: Routine screening. Comparison is made to exams dated: 06/28/2019 mammogram, 06/08/2019 mammogram, 04/21/2018 mammogram, 02/26/2016 mammogram, and 07/03/2014 mammogram - [facility]. There are scattered fib roglandular elements in both breasts. No significant masses, calcifications, or other findings are seen in either breast. There has been no significant interval change. IMPRESSION: NEGATIVE There is no mammographic evidence of malignancy. A 1 year screening mammogram is recommended. This exam was interpreted at Station ID: [id number]. NOTE: For mammograms, a report in lay terms will be sent to the patient. Approximately 15% of breast malignancies will not be visualized mammographically. In the management of a palpable breast mass, a negative mammogram must not discourage biopsy of a clinically suspicious lesion. Electronically Signed By: Antony Peng acr/penrad:08/08/2020 09:26:42 ACR BI-RADS Category 1: Negative 3341F PARENCHYMAL PATTERN: (A) - The breast(s) demonstrate(s) scattered fibroglandular densities. BI-RADS CATEGORY: (1) - 1 RECOMMENDATION: (ANNUAL) - Recommend routine annual screening mammography. [id number] 1 year screening LATERALITY: (B)
== END 2020-08-08 08:47 | disposition home or self-care (01) ==
LOC: DI.N 08:46
PROVIDERS: ATTEND Internal Medicine
DX: Z12.31 Encounter for screening mammogram for malignant neoplasm of breast (principal)

== ENCOUNTER 2020-09-20 08:00 | Outpatient (CLI) | payer MEDICAID ==
[2020-09-20 11:39] LABS: BASOPHILS % (AUTO) 0.5 %; EOSINOPHILS # (AUTO) 0.1 10^3/uL (0.0-0.7); HCT - HEMATOCRIT 39.2 % (37.0-47.0); HGB - HEMOGLOBIN 12.5 g/dL (12.0-16.0); LYMPHOCYTES % (AUTO) 33.7 %; MEAN CORPUSCULAR HGB CONC 31.9 g/dL (32.0-36.0); MEAN CORPUSCULAR VOLUME 94.2 fL (81.0-99.0); MEAN PLATELET VOLUME 12.9 fL (7.9-10.8); MONOCYTES # (AUTO) 0.6 10^3/uL (0.0-1.0); MONOCYTES % (AUTO) 10.4 %; NEUTROPHILS # (AUTO) 3.3 10^3/uL (1.5-6.6); NEUTROPHILS % (AUTO) 54.1 %; PLT - PLATELET COUNT 198 10^3/uL (130-450); RED BLOOD COUNT 4.16 10^6/uL (4.20-5.40); RED CELL DISTRIBUTION WIDTH 12.7 % (12.0-15.0)
[2020-09-20 12:04] LABS: ALBUMIN 3.9 g/dL (3.2-5.5); ALBUMIN/GLOBULIN RATIO 1.3 (1.0-2.2); BILIRUBIN,TOTAL 0.4 mg/dL (0.2-1.0); CALCIUM 9.4 mg/dL (8.5-10.3); CREATININE 0.6 mg/dL (0.4-1.0); POTASSIUM 2.9 mmol/L (3.5-5.0); TOTAL PROTEIN 6.9 g/dL (6.7-8.2)
== END 2020-09-20 23:59 | disposition home or self-care (01) ==
LOC: LAB.WCP 08:00
PROVIDERS: ATTEND Psychiatry & Neurology Neurology
DX: Z51.81 Encounter for therapeutic drug level monitoring (principal); Z79.899 Other long term (current) drug therapy
CPT/HCPCS: 36415; 80053; 85025